=== PATIENT | male | born 1935 | race Caucasian/White ===

== ENCOUNTER 2019-08-23 00:04 | Inpatient (IN) | payer MEDICARE, SELFPAY ==
[2019-08-23] VITALS (22 sets, daily range): BP systolic 134–193; BP diastolic 77–113; PULSE 85–115; RESP 16–22; TEMP 36.2–37.3; O2SAT 94–100; BMI 30.5
--- NOTE | 2019-08-23 | ECHO_ITS ---
Patient Info Name: Tab Hughes Age: 84 years : 1935 Gender: Male Ht: 67 in Wt: 195 lbs BSA: 2.07 m2 HR: 85 bpm BP: 157 / 82 mmHg Heart Rhythm: Sinus Rhythm Technical Quality: Good Exam Date: 08/23/2019 11:42 AM Exam Location: [facility] Card Pulmonary Patient Status: Inpatient Admit Date: 08/23/2019 Staff Ordering Physician: Tru Smith MD Buzzle Buffer: Teodoro Sandra RDCS, RT Attending Provider: Katlyn Rodriguez DO Exam Type: CA echo doppler color flow Study Info Indications R60.0 - Localized edema Complete two-dimensional, color flow and Doppler transthoracic echocardiogram is performed. Summary 1. Left ventricular chamber dimension is normal. 2. Left ventricular systolic function is normal, estimated at 65-70%. 3. There is moderately increased left ventricular wall thickness. 4. The left ventricular diastolic function is grade I diastolic dysfunction. 5. Right ventricular chamber dimension is mildly enlarged. 6. Left atrial chamber dimension is mildly enlarged. 7. There is moderate aortic valve calcification. 8. There is mild mitral valve regurgitation. 9. There is mild pulmonic regurgitation. 10. The aortic root size at the sinus of Valsalva is mildly dilated. Left Ventricle Left ventricular chamber dimension is normal. Left ventricular systolic function is normal, estimated at 65-70%. There is moderately increased left ventricular wall thickness. The left ventricular diastolic function is grade I diastolic dysfunction. Right Ventricle Right ventricular chamber dimension is mildly enlarged. Right ventricular systolic function is normal. Left Atria Left atrial chamber dimension is mildly enlarged. Right Atria Right atrial chamber dimension is normal. Atrial Septum Intact interatrial septum visualized by color flow imaging. Aortic Valve The aortic valve is trileaflet. There is moderate aortic valve sclerosis. There is no aortic valve stenosis. There is trace aortic valve regurgitation. There is moderate aortic valve calcification. Pulmonic Valve The pulmonic valve is normal. There is no pulmonic valve stenosis. There is mild pulmonic regurgitation. Mitral Valve The mitral valve has normal leaflets. There is no mitral valve stenosis. There is mild mitral valve regurgitation. Tricuspid Valve The tricuspid valve leaflets are normal. There is no significant tricuspid valve stenosis. There is trace tricuspid valve regurgitation. Pericardium/Pleural The pericardium appears normal. There is trivial pericardial effusion. Aorta The aortic root size at the sinus of Valsalva is mildly dilated. Left Ventricular Outflow Tract Name Value Normal LVOT 2D LVOT Diameter 2.2 cm LVOT Doppler LVOT Peak Gradient 2 mmHg LVOT Mean Gradient 1 mmHg LVOT VTI 14 cm LVOT VTI/AV VTI Ratio 0.7 LVOT Stroke Volume 50 ml Pulmonic Valve Name
--- NOTE | ~2019-08-23 | XR_ITS ---
EXAMINATION: XR chest 2V DATE: 08/23/2019 01:09 INDICATION: Chest tightness TECHNIQUE: AP and lateral views of the chest are obtained. COMPARISON: 09/05/2017 FINDINGS: There is mild atelectasis of the lung bases. There is no pleural effusion or pneumothorax. The cardiomediastinal silhouette is normal. There is mild thoracic spondylosis. Surgical clips in the right upper quadrant are likely from prior cholecystectomy. IMPRESSION: 1. Mild atelectasis of the lung bases. Reviewed, dictated and finalized at location A. [employer]
--- NOTE | ~2019-08-23 | CT_ITS ---
EXAMINATION: CTA chest abdomen pelvis DATE: 08/23/2019 02:13 INDICATION: Chest and abdominal pain TECHNIQUE: Computed tomographic angiography (CTA) of the chest, abdomen, and pelvis was performed wit hout and with 100 mL Omnipque-350 intravenous contrast. Maximum intensity projection 3D-reconstructio ns of the aorta and other arteries were constructed by the technologist on a separate workstation. Th e dose-length product (DLP) was 1571.47 mGy-cm. Automated exposure control and iterative reconstructi on technique were employed. COMPARISON: 04/02/2015; MRI, 10/21/2018 FINDINGS: CHEST CTA: The thoracic aorta is normal without evidence of aneurysm or dissection. There is dependent atelectas is. No pleural effusion or pneumothorax is identified. No pathologically enlarged thoracic lymph node s are identified. The heart size is normal. There is calcified coronary artery atherosclerosis. ABDOMEN AND PELVIS CTA: There is calcified atherosclerosis of the aorta and many of the other arteries. The abdominal aorta i s otherwise normal without aneurysm or dissection. Cysts of the liver measure up to 10 mm. The gallbl adder is surgically absent. There is mild enlargement of the common bile duct and central intrahepati c ducts which is likely due to post cholecystectomy state. Punctate calcifications in an otherwise no rmal spleen likely represent healed granulomatous disease. The pancreas and adrenal glands are normal . There is a 3.9 cm mass of the right kidney with increase in size. A 1.6 cm mass of the lower pole o f the left kidney slightly increased in size. Soft tissue density adjacent to the left common iliac a rtery is decreased in size, consistent with treated lymphoma. No pathologically enlarged abdominal ly mph nodes are identified. There is no free intraperitoneal gas or evidence of bowel obstruction. Two 4 mm stones are present in the bladder. There is severe lumbar spondylosis. Colonic diverticulosis i s present without evidence of diverticulitis. IMPRESSION: 1. No evidence of aortic aneurysm or dissection. No acute findings. 2. Bilateral kidney masses with slight increase in size, consistent with renal cell carcinoma. 3. Two 4 mm stones in the urinary bladder. Reviewed, dictated and finalized at location A. ET INSPECTOR
--- NOTE | 2019-08-23 00:41 | ECG_ITS ---
Measurements Intervals [place] Rate: 101 P: 22 NV: 152 QRS: 14 QRSD: 93 T: 32 QT: 325 QTc: 422 Interpretive Statements SINUS TACHYCARDIA ATRIAL PREMATURE COMPLEX INFERIOR INFARCT, AGE INDETERMINATE ABNORMAL ECG Electronically Signed On 08-23-2019 8:40:36 HORSE EXERCISER by Oh Chaudhary D.O.
--- NOTE | 2019-08-23 00:45 | ED.CHESTPAIN ---
HPI - Chest Pain General Chief Complaint: Chest Pain Stated Complaint: chest tightness Time Seen by Provider: 08/23/19 00:16 Source: patient Mode of arrival: ambulatory Limitations: no limitations History of Present Illness HPI narrative: The pt is an 84 y/o male who presents to the ED c/o midsternal CP onset two days ago. Pt states that the pain feels like a tightness. Pt notes that he took Nitro x2 one day ago with some relief. He notes that he last took Nitroglycerin one day ago at 1700. Pt reports SOB. 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 MD complaint: chest pain Onset (ago): day(s) (2) Pain location: other (Midsternal) Quality: tightness Relieving factors: nitroglycerin Associated symptoms: dyspnea Related Data Allergies Allergy/AdvReac Type Severity Reaction Status Date / Time No Known Allergies Allergy Unverified 12/08/15 09:55 Review of Systems Review of Systems: All systems reviewed & are unremarkable except as noted in HPI and below Cardiovascular: Cardiovascular: Reports chest pain (Midsternal, tightness) Respiratory: Respiratory: Reports dyspnea [facility] Past Medical History Medical History (Updated 08/23/19 @ 04:18 by Gee Rubio MD) Afib (Acute) Anxiety (Acute) BPH (benign prostatic hyperplasia) (Acute) CAD (coronary artery disease) (Acute) Chronic back pain (Acute) Collar bone fracture (Acute) Depression (Acute) GERD (gastroesophageal reflux disease) (Acute) HLD (hyperlipidemia) (Acute) HTN (hypertension) (Acute) Kidney stones (Acute) Leg fracture, left (Acute) dx3 Non Hodgkin's lymphoma (Acute) Peripheral neuropathy (Acute) Right arm fracture (Acute) Surgical History Surgical History (Updated 08/23/19 @ 00:50 by Teodoro Sheffield) History of cardiac cath (Acute) History of cholecystectomy (Acute) Stented coronary artery (Acute) Social History Social History (Updated 08/23/19 @ 01:04 by Teodoro Sheffield) Smoking status: Never smoker Gender identity (if verbalized by the patient): Male Exam Const: General: alert, diaphoretic and ill appearing Nutritional Appearance: obese Orientation/consciousness: oriented x3 HENMT: Head: normal to inspection Eyes: Conjunctivae: conjunctivae normal Pupils: PERRL Chest: Chest palpation & inspection: normal inspection of the chest and no tenderness Resp: Effort & Inspection: normal respiratory effort Auscultation: clear to auscultation bilaterally Cardio: Rate: regular rate Rhythm: regular rhythm GI: Inspection: distended Palpation (GI): Yes tender in the epigastrum, No guarding and No rebound tenderness Skin: General skin exam: normal color Neuro: General: oriented x3 and moves all extremities Extrem: General: edema (trace) bilateral Course Course Emergency Course: After morphine and nitro paste he reported improvement in chest pain, but began experiencing severe abdominal pain. CTA was ordered, which revealed no cause. Vital Signs Vital signs: Vital Signs Temperature 36.2 C L 08/23/19 00:15 Pulse Rate 102 H 08/23/19 00:15 Respiratory Rate 19 08/23/19 00:15 Blood Pressure 193/106 H 08/23/19 00:15 Pulse Oximetry 100 08/23/19 00:15 Temperature 36.2 C L 08/23/19 01:20 Pulse Rate 102 H 08/23/19 03:32 Respiratory Rate 20 08/23/19 03:32 Blood Pressure 134/81 08/23/19 03:32 Pulse Oximetry 100 08/23/19 03:32 MDM - Chest Pain Lab Data Result diagrams: 08/23/19 00:45 08/23/19 00:45 Labs: Lab Results 08/23/19 08/23/19 08/23/19 Range/Units 00:45 00:45 00:45 WBC 7.1 (4.5-10.0) K/mm3 RBC 5.01 (4.6-6.20) M/mm3 Hgb 14.5 (14.0-18.0) g/dL Hct 45.2 (42.0-52.0) % MCV 90.2 (80-100) fl MCH 28.9 (26-34) pg MCHC 32.1 (32-36) g/dl RDW 13.8 (11.5-14.5) % Plt Count 193 (150-375) k/mm3 MPV 10.2 (7.4-10.4) fl Immature Gran % (Auto) 0.3 (0-0.5) % Ne
[2019-08-23 00:50] LABS: Basophils Absolute Auto 0.1 K/mm3 (0.0-0.1); Basophils Percent Auto 0.7 % (0.2-1.2); Eosinophils Absolute Auto 0.3 K/mm3 (0-0.3); Eosinophils Percent Auto 3.5 % (0-4.4); Hematocrit 45.2 % (42.0-52.0); Hemoglobin 14.5 g/dL (14.0-18.0); Immature Granulocyte Absolute 0.02 K/mm3 (0.00-0.031); Immature Granulocyte Percent A 0.3 % (0-0.5); Lymphocytes Absolute Auto 2.71 K/mm3 (0.9-3.2); Lymphocytes Percent Auto 38.4 % (18.3-44.2); Mean Corpuscular HGB Conc 32.1 g/dl (32-36); Mean Corpuscular Hemoglobin 28.9 pg (26-34); Mean Corpuscular Volume 90.2 fl (80-100); Mean Platelet Volume 10.2 fl (7.4-10.4); Monocytes Absolute Auto 0.8 K/mm3 (0.1-0.6); Monocytes Percent Auto 11.3 % (2.6-8.5); Neutrophils Absolute Auto 3.2 K/mm3 (1.3-6.7); Neutrophils Percent Auto 45.8 % (45.5-73.1); Platelet Count Result 193 k/mm3 (150-375); Red Blood Count 5.01 M/mm3 (4.6-6.20); Red Cell Distribution Width 13.8 % (11.5-14.5); White Blood Count 7.1 K/mm3 (4.5-10.0)
[2019-08-23] MEDS: ASPIRIN 81 MG CHEWABLE TABLET 324 MG PO (00:55)
[2019-08-23] MEDS: NITROGLYCERIN OINTMENT 1 INCH DOSE TRANSDERM ×5 (00:55→23:38)
[2019-08-23] MEDS: MORPHINE SULFATE 4 MG/ML INJ IV PUSH ×2 (00:55→01:48)
[2019-08-23 01:01] LABS: Partial Thromboplastin Time 36.6 SECONDS (22.3-36.8)
[2019-08-23 01:02] LABS: Blood Urea Nitrogen 22 mg/dL (9-20); Calcium 9.2 mg/dL (8.4-10.2); Carbon Dioxide 30 mmol/L (22-30); Chloride 103 mmol/L (98-107); Estimated CRCL calculation 34 ml/min; Estimated Glomerular Filt Rate 52; Glucose 103 mg/dL (75-110); Potassium 3.8 mmol/L (3.4-5.0); Sodium 139 mmol/L (137-145)
[2019-08-23 01:14] LABS: Troponin I < 0.012 ng/mL (0.000-0.034)
[2019-08-23] MEDS: LABETALOL HCL INJ 100 MG/20 ML VIAL 20 MG IV PUSH (02:16)
[2019-08-23 04:17] LABS: Alanine Aminotransferase 19 U/L (4-50); Albumin Level 3.3 g/dL (3.5-5.1); Alkaline Phosphatase 100 U/L (38-126); Aspartate Amino Transferase 27 U/L (17-59); Bilirubin,Total 0.3 mg/dL (0.2-1.3); Lipase 52 U/L (23-300)
[2019-08-23 04:22] LABS: Troponin I 0.027 ng/mL (0.000-0.034)
--- NOTE | 2019-08-23 04:24 | ADMGEN ---
This patient, Tab Hughes, was admitted to IMU Room 204-01. Patient/family oriented to hospital policies and general routines including ID bracelet, bed and alarms, visiting hours, pain management, procedures, bathroom and other care routines, personal items, smoking policy, room service/diet, and visiting hours. Valuables list has been completed. Information on how to activate the Rapid Response Team has been discussed. Patient/Family are encouraged to report perceived risks to care and to ask questions if they do not understand what they are told or what they should do.
[2019-08-23 07:08] LABS: Troponin I 0.077 ng/mL (0.000-0.034)
--- NOTE | 2019-08-23 09:26 | PM.IMHP ---
H&P: HPI History of Present Illness Chief complaint: chest pain Narrative: Tab Hughes is a 84 year old male with history of paroxysmal AFib, coronary disease, hypertension and hyperlipidemia here for chest pain. Patient has a history of coronary disease and has had 5 stents placed in the past. His last heart catheterization was in the . He does not follow with a special agent secret service. Patient states he has been feeling very weak over the past 4 years since being treated with chemo for non-Hodgkin's lymphoma. His around that time as well. He has not been very active recently and does not exercise regularly. He has noted over the past few weeks increasing shortness of breath with exertion or when bending over. No chest pain associated with this. He lives alone. He does have anxiety. A restorationism member was recently found at home alone which is causing more anxiety for him. On the evening of , patient developed chest pressure requiring nitroglycerin. The chest discomfort resolved. Chest pressure returned the following day requiring repeat nitroglycerin. Chest pain continued on and off during the day. He describes it as a 'elephant sitting on my chest'. He also was having left upper extremity 'tingling'. He was not short of breath but did have dyspnea on exertion when walking to the bathroom. He had poor appetite and nausea. He took a total of 4 dose of nitroglycerin at home that improved his pain. He felt poorly overall. He does state the pain was pleuritic but not positional or palpable. He does have chronic leg edema left greater than right for the past 4-5 months. He is on Pradaxa for has paroxysmal atrial fibrillation. Patient was seen by primary care doctor for the edema and treated with diuretics and Skyler hose. No recent stress test or heart catheterization. No recent echo. He sleeps in a chair at home. He has nocturia 1-2 times a night without change. No PND symptoms. Here patient was noted to be hypertensive of 193/106. His 3rd troponin has become positive. He was treated with aspirin, labetalol, nitropaste and morphine with resolution of his pain. His pain has not returned. He feels well today and is hungry. EKG showing no acute changes. Review of Systems Review of Systems: Narrative: Gen - No fever or chills Eye - no double vision or vision changes. Recent left cataract surgery 2 months ago. 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 ENT - no hearing loss. He does have mild tinnitus in the right ear. No odynophagia or dysphagia CV - as above. Pulm - as above. GI - node abdominal pain, diarrhea or constipation. He did have some abdominal cramping after getting medications in the emergency room but that symptom has resolved. - no dysuria or hematuria. Neuro - patient has peripheral neuropathy lower extremities. No history of seizure or stroke. Endo - no weight loss. No diabetes or thyroid disease. Psych - patient has anxiety and has medications that he takes periodically for this. Skin - no rashes, lumps or bumps. [facility] Past Medical History Medical History Afib (Acute) Anxiety (Acute) BPH (benign prostatic hyperplasia) (Acute) CAD (coronary artery disease) (Acute) Chronic back pain (Acute) Collar bone fracture (Acute) Depression (Acute) GERD (gastroesophageal reflux disease) (Acute) HLD (hyperlipidemia) (Acute) HTN (hypertension) (Acute) Kidney stones (Acute) Leg fracture, left (Acute) dx3 Non Hodgkin's lymphoma (Acute) Peripheral neuropathy (Acute) Renal mass (Acute) Bilateral renal masses Right arm fracture (Acute) Stage III chronic kidney disease (Acute) Surgical History Surgical History History of cardiac cath (Acute) History of cholecystectomy (Acute) Stented coronary artery (Acute) Family History Family History (Reviewed 08/23/19 @ 11
--- NOTE | 2019-08-23 11:12 | PM.CNCAR ---
Assessment and Plan Assessment and plan (1) Non-ST elevation myocardial infarction (NSTEMI): Code(s): I21.4 - Non-ST elevation (NSTEMI) myocardial infarction Status: Acute Assessment and Plan: Patient has not ruled in. He has a known history of coronary disease. Continue aspirin, nitroglycerin paste, metoprolol, losartan. Lovenox 1 milligram/kilogram q.12 hours to be initiated. Will start atorvastatin 40 mg p.o. daily. He is stable at this point. Plan will be for coronary angiogram on Sunday. Patient has agreed to temporarily rescinded his DNR status during his procedure. Obviously if he becomes unstable with intractable pain or dynamic EKG changes, will proceed to angiogram urgently/emergently. 2D echocardiogram with Doppler (2) CAD (coronary artery disease): Qualifiers: Coronary Disease-Associated Artery/Lesion type: [place] artery [place] vs. transplanted heart: [place] heart Associated angina: with unstable angina Qualified Code(s): I25.110 - Atherosclerotic heart disease of [place] coronary artery with unstable angina pectoris Code(s): I25.10 - Atherosclerotic heart disease of [place] coronary artery without angina pectoris Status: Acute Assessment and Plan: As above (3) HTN (hypertension): Qualifiers: Hypertension type: essential hypertension Qualified Code(s): I10 - Essential (primary) hypertension Code(s): I10 - Essential (primary) hypertension Status: Acute Assessment and Plan: At goal (4) Afib: Qualifiers: Atrial fibrillation type: paroxysmal Qualified Code(s): I48.0 - Paroxysmal atrial fibrillation Code(s): I48.91 - Unspecified atrial fibrillation Status: Acute Assessment and Plan: Holding Pradaxa for now. (5) HLD (hyperlipidemia): Qualifiers: Hyperlipidemia type: unspecified Qualified Code(s): E78.5 - Hyperlipidemia, unspecified Code(s): E78.5 - Hyperlipidemia, unspecified Status: Acute Assessment and Plan: Starting statin History of Present Illness History of Present Illness Consult date/time: 08/23/19 11:12 Requesting physician: Tru Smith MD Consult reason: chest pain Reason For Visit: chest pain Narrative: Date of service 08/23/2019 History: Patient is an 84-year-old male who does have a known history of coronary artery disease as well as atrial fibrillation. He has not been seen by Cardiology in several years. He is on Pradaxa for atrial fibrillation and has had several stents in the past. He believes the last angiogram he had was in the when the stents were placed. Regardless he had been doing pretty well up until a couple of months ago when restarted to develop shortness of breath. Shortness of breath has progressed to the point that at the top of 1 flight of stairs she has to stop and recover. He has also noticed some worsening swelling over the past couple months. He has been initiated on diuretic therapy by his primary care provider. Three days ago he had an episode of chest pain and took a nitroglycerin which did help his symptoms. He then went to [place] for Thanksgiving and had another episode then. He took a nitroglycerin on Thanksving and then 2 more nitroglycerin yesterday all for chest pain. Chest pain is described as an elephant on his chest radiating to the left shoulder area. Symptoms are improved with nitro. Does have some dizziness and nausea associated with it. His nephew brought him to the hospital after yesterday evening's episode of chest pain. Chest pain is also worsened by food/postprandial. He has subsequently ruled in for myocardial infarction with troponins now at a level of 0.077. He denies any syncope or presyncope. No paroxysmal nocturnal dyspnea orthopnea or palpitations. He currently is pain-free on nitroglycerin, metoprolol, ARB, aspirin. Pradaxa has been on hold and his last dose was at 4:00 p.m. yesterday.
[2019-08-23] MEDS: ASPIRIN 81 MG CHEWABLE TABLET PO (12:49)
[2019-08-23] MEDS: ATORVASTATIN 40 MG TABLET PO (12:49)
[2019-08-23] MEDS: ENOXAPARIN 100 MG/ML SYRINGE 88 MG SUB-Q ×2 (12:49→23:39)
[2019-08-23] MEDS: FLUTICASONE PROPIONATE 0.05% NA SPR 16 GM BTL (*BKC) 2 SPRAY NASAL (12:54)
[2019-08-23 13:51] LABS: Troponin I 0.165 ng/mL (0.000-0.034)
[2019-08-23] MEDS: CARBIDOPA/LEVODOPA 25/100 MG TABLET 1 TABLET PO (17:37)
[2019-08-23 20:01] LABS: Troponin I 0.131 ng/mL (0.000-0.034)
[2019-08-23] MEDS: TAMSULOSIN HCL 0.4 MG CAPSULE PO (21:25)
[2019-08-23] MEDS: ONDANSETRON INJ 4 MG/2 ML VIAL IV PUSH (21:25)
[2019-08-24] VITALS (15 sets, daily range): BP systolic 145–178; BP diastolic 77–89; PULSE 64–110; RESP 12–20; TEMP 36.7–37.1; O2SAT 93–100
[2019-08-24 05:38] LABS: Albumin Level 3.9 g/dL (3.5-5.1); Blood Urea Nitrogen 17 mg/dL (9-20); Calcium 9.1 mg/dL (8.4-10.2); Carbon Dioxide 30 mmol/L (22-30); Chloride 102 mmol/L (98-107); Cholesterol 205 mg/dL (0-200); Estimated CRCL calculation 40 ml/min; Estimated Glomerular Filt Rate 52; Glucose 107 mg/dL (75-110); HDL Direct 39 mg/dL; Phosphorus 3.7 mg/dL (2.5-4.5); Sodium 138 mmol/L (137-145); Triglycerides 154 mg/dL (<150)
[2019-08-24 05:49] LABS: LDL Cholesterol Direct 138 mg/dL
[2019-08-24] MEDS: NITROGLYCERIN OINTMENT 1 INCH DOSE TRANSDERM ×4 (05:58→23:03)
[2019-08-24] MEDS: ASPIRIN 81 MG CHEWABLE TABLET PO (09:34)
[2019-08-24] MEDS: PANTOPRAZOLE 40 MG TABLET PO (09:34)
[2019-08-24] MEDS: ENOXAPARIN 100 MG/ML SYRINGE 88 MG SUB-Q ×2 (09:35→23:02)
[2019-08-24] MEDS: LOSARTAN POTASSIUM 100 MG TABLET PO (09:36)
[2019-08-24] MEDS: ATORVASTATIN 40 MG TABLET PO (09:36)
[2019-08-24] MEDS: CARBIDOPA/LEVODOPA 25/100 MG TABLET 1 TABLET PO ×2 (09:36→16:54)
[2019-08-24] MEDS: METOPROLOL SUCCINATE EXT REL 100 MG TABCR PO (09:36)
[2019-08-24] MEDS: AMLODIPINE BESYLATE 5 MG TABLET BY MOUTH (09:36)
[2019-08-24] MEDS: ACETAMINOPHEN 325 MG TABLET 650 MG PO (09:37)
[2019-08-24] MEDS: FINASTERIDE 5 MG TABLET PO (09:43)
--- NOTE | 2019-08-24 09:58 | PM.PNCARD ---
Progress Note: A&P Assessment and Plan (1) Non-ST elevation myocardial infarction (NSTEMI): Code(s): I21.4 - Non-ST elevation (NSTEMI) myocardial infarction Status: Acute Assessment and Plan: Patient has ruled in. He has a known history of coronary disease. Continue aspirin, nitroglycerin paste, metoprolol, losartan. Patient has agreed to temporarily rescinded his DNR status during his procedure. Obviously if he becomes unstable with intractable pain or dynamic EKG changes, will proceed to angiogram urgently/emergently. Continue Lovenox until this evening's dose is given then discontinue. NPO after midnight for cardiac catheterization tomorrow. (2) CAD (coronary artery disease): Qualifiers: Coronary Disease-Associated Artery/Lesion type: [place] artery [place] vs. transplanted heart: [place] heart Associated angina: with unstable angina Qualified Code(s): I25.110 - Atherosclerotic heart disease of [place] coronary artery with unstable angina pectoris Code(s): I25.10 - Atherosclerotic heart disease of [place] coronary artery without angina pectoris Status: Acute Assessment and Plan: As above (3) HTN (hypertension): Qualifiers: Hypertension type: essential hypertension Qualified Code(s): I10 - Essential (primary) hypertension Code(s): I10 - Essential (primary) hypertension Status: Acute Assessment and Plan: Increase amlodipine to 10 mg daily (4) Afib: Qualifiers: Atrial fibrillation type: paroxysmal Qualified Code(s): I48.0 - Paroxysmal atrial fibrillation Code(s): I48.91 - Unspecified atrial fibrillation Status: Acute Assessment and Plan: Holding Pradaxa for now. (5) HLD (hyperlipidemia): Qualifiers: Hyperlipidemia type: unspecified Qualified Code(s): E78.5 - Hyperlipidemia, unspecified Code(s): E78.5 - Hyperlipidemia, unspecified Status: Acute Assessment and Plan: Starting statin Subjective Interval history: Chief complaint: Chest pain, non-STEMI Date of service 08/24/2019: He feels well today. No chest pain or shortness of breath Review of Systems Review of Systems: All systems reviewed & are unremarkable except as noted in HPI and below Constitutional: Constitutional: Denies excessive sweating, Denies fatigue and Denies headache(s) Eyes: Eyes: Denies blurry vision ENT: Denies headache(s), Denies lip swelling, Denies epistaxis and Denies neck pain Cardiovascular: Cardiovascular: Reports chest pain, Reports pedal edema and Reports dyspnea Respiratory: Respiratory: Reports dyspnea Gastrointestinal: Gastrointestinal: Denies abdominal pain Genitourinary: Genitourinary: Denies dysuria Musculoskeletal: Musculoskeletal: Denies neck pain Integumentary/Breasts: Skin/Breast: Denies breast pain and Denies dry skin Neurologic: Denies headache(s) Psychiatric: Psychiatric: Denies anxiety Endocrine: Endocrine: Denies excessive sweating and Denies fatigue Hematologic/Lymphatic: Hematologic/Lymphatic: Denies easy bleeding Allergic/Immunologic: Allergic/Immunologic: Denies GI upset with certain foods and Denies lip swelling Exam Const: General: comfortable HENMT: General nose exam: nares normal Eyes: Pupils: PERRL Neck: Neck: supple and no JVD Carotids: no bruits Chest: Other: No chest wall pain to palpation Resp: Auscultation: clear to auscultation bilaterally and no rales Cardio: Rate: regular rate Heart sounds: murmur GI: Palpation (GI): Yes soft and Yes tender Skin: General skin exam: normal color and no erythema Neuro: Cranial nerves: Yes PERRL Cognition (Neuro): normal cognition Speech: normal speech Extrem: General: edema (Mild) bilateral Right upper extremity: normal to inspection Left upper extremity: normal to inspection Right lower extremity: normal to inspection Left lower extremity: normal to inspection Psych: Mental St
--- NOTE | 2019-08-24 15:05 | PM.IMPN ---
Progress Note: A&P Assessment and Plan (1) Non-ST elevation myocardial infarction (NSTEMI): Code(s): I21.4 - Non-ST elevation (NSTEMI) myocardial infarction Status: Acute Assessment and Plan: Patient with stuttering chest pain relieved with nitroglycerin. No significant EKG changes. Troponin has become elevated to 0.165. Patient does have risk factors with sedentary lifestyle, hypertension, hyperlipidemia and known coronary disease without recent evaluation. His symptoms could be related to uncontrolled hypertension as well but he does not give a clear history that his blood pressures has been poorly controlled at the doctor's office. Consider also anxiety and/or acid reflux although these seem less likely. Echo showing EF 65-70% with Grade I DD. Continue nitropaste, beta-ag, statin and ASA. Plan for heart catheterization tomorrow. (2) HTN (hypertension): Qualifiers: Hypertension type: essential hypertension Qualified Code(s): I10 - Essential (primary) hypertension Code(s): I10 - Essential (primary) hypertension Status: Acute Assessment and Plan: Blood pressure 193/106 on admission. Blood pressure was treated in the emergency room. Some of his chest pain symptoms may be related to uncontrolled hypertension. Blood pressure reviewed on 08/24/19. BP still elevated despite resuming home medications (imdur on hold but on NTP). Unclear how well controlled blood pressures has been in the outpatient setting. Norvasc has been advanced. To monitor blood pressure adjust medications as needed. (3) Afib: Qualifiers: Atrial fibrillation type: paroxysmal Qualified Code(s): I48.0 - Paroxysmal atrial fibrillation Code(s): I48.91 - Unspecified atrial fibrillation Status: Acute Assessment and Plan: [id number] - 4. Patient with paroxysmal AFib. Patient on Pradaxa for stroke prophylaxis and metoprolol for rate maintenance. We have continued his metoprolol. Hold Pradaxa for now. Currently on Lovenox which will be stopped tonight for planned left heart catheterization in morning. (4) BPH (benign prostatic hyperplasia): Qualifiers: Lower urinary tract symptom presence: symptoms absent Qualified Code(s): N40.0 - Benign prostatic hyperplasia without lower urinary tract symptoms Code(s): N40.0 - Benign prostatic hyperplasia without lower urinary tract symptoms Status: Acute Assessment and Plan: No evidence of urine retention. Continue finasteride and Flomax. (5) Anxiety: Code(s): F41.9 - Anxiety disorder, unspecified Status: Acute Assessment and Plan: Mood stable. Not on long-term medications anxiety. (6) Non Hodgkin's lymphoma: Qualifiers: B-cell lymphoma type: unspecified B-cell Lymphoma site: intra-abdominal nodes Non-Hodgkin lymphoma type: B-cell Qualified Code(s): C85.13 - Unspecified B-cell lymphoma, intra-abdominal lymph nodes Code(s): C85.90 - Non-Hodgkin lymphoma, unspecified, unspecified site Status: Acute Assessment and Plan: Patient is status post chemotherapy treatment. Recent abdominal MRI in September 2018 showing no recurrence. No pathologically enlarged abdominal lymph nodes are identified by CT. Continue to monitor. (7) HLD (hyperlipidemia): Qualifiers: Hyperlipidemia type: unspecified Qualified Code(s): E78.5 - Hyperlipidemia, unspecified Code(s): E78.5 - Hyperlipidemia, unspecified Status: Acute Assessment and Plan: Patient has hyperlipidemia listed on his past medical history but not on cholesterol medications. Cholesterol 205 with LDL 138 and HDL 39. Triglyceride 154. LFTs normal. Lipitor started. (8) CAD (coronary artery disease): Qualifiers: Associated angina: with unstable angina Coronary Disease-Associated Artery/Lesion type: [place] artery [place] vs. tra
[2019-08-24] MEDS: POLYETHYLENE GLYCOL 3350 17 GM POWD.PACK PO (16:54)
[2019-08-24] MEDS: TAMSULOSIN HCL 0.4 MG CAPSULE PO (21:13)
[2019-08-25] VITALS (32 sets, daily range): BP systolic 138–176; BP diastolic 73–118; PULSE 72–97; RESP 14–25; TEMP 36.6–37.5; O2SAT 92–97
[2019-08-25] MEDS: NITROGLYCERIN OINTMENT 1 INCH DOSE TRANSDERM (06:05)
[2019-08-25] MEDS: ATORVASTATIN 40 MG TABLET PO (07:51)
[2019-08-25] MEDS: LOSARTAN POTASSIUM 100 MG TABLET PO (07:51)
[2019-08-25] MEDS: CARBIDOPA/LEVODOPA 25/100 MG TABLET 1 TABLET PO ×2 (07:51→16:15)
[2019-08-25] MEDS: FINASTERIDE 5 MG TABLET PO (07:51)
[2019-08-25] MEDS: AMLODIPINE BESYLATE 5 MG TABLET 10 MG BY MOUTH (07:51)
[2019-08-25] MEDS: PANTOPRAZOLE 40 MG TABLET PO (07:52)
[2019-08-25] MEDS: FLUTICASONE PROPIONATE 0.05% NA SPR 16 GM BTL (*BKC) 2 SPRAY NASAL (07:52)
[2019-08-25] MEDS: METOPROLOL SUCCINATE EXT REL 100 MG TABCR PO (07:52)
[2019-08-25] MEDS: ASPIRIN 81 MG CHEWABLE TABLET PO (07:56)
--- NOTE | 2019-08-25 12:10 | WPDCARDPROC ---
Cardiac Cath Procedure Note Date of procedure:: 08/25/19 Performing physician:: Stephan Zaldivar MD Indication:: Coronary artery disease with right remote history of PCI intermittent ischemic chest pain Brief clinical history:: 84-year-old patient with history of coronary artery disease undergoing stenting in the . Records of that are not available. Patient was doing well until the last couple of days when he had several episodes of ischemic type chest pain radiating into the left arm in a very modest rise in his troponin level. Procedure Procedure performed:: Left heart catheterization with left and right coronary angiography Sedation/Medication given:: fentanyl 50 mg Versed 2 mg case start time 11:44 a.m. case end time 12:03 p.m. sedation provided by Micki Newman RN trained observer Access site:: right femoral artery Estimated blood loss:: 10-15 cc Procedure note:: patient was brought to the cardiac catheterization lab in the postabsorptive state where the right femoral triangle was prepared and draped in the usual fashion. Anesthesia was provided with 1% lidocaine infiltrated locally. Using the modified Seldinger technique a 5 [place] sheath was placed into the right femoral artery. Left heart catheterization was then carried out. A high quality echocardiogram was done this morning demonstrating normal looking left ventricular function so I elected not to perform a left ventriculogram standard 5 [place] FL4 catheter was used to engage inject the left coronary artery. Standard 5 [place] JR4 catheter was used to engage inject the right coronary artery. The cineangiograms were reviewed in detail and then the case was terminated. The patient was taken to the holding area for manual sheath removal. Findings:: Central aortic pressure was 166/72. The left ventricle was not entered left main coronary artery is moderate to large in caliber and appears to be calcified but widely patent left anterior descending is a medium caliber artery extending down to the apex. There is diffuse disease of the proximal 3rd of the LAD. This is somewhat eccentric but appears to be in the vicinity of at least 80 and possibly 90% stenosis in a couple of views. This segment of the LAD is extensively calcified. A large septal perforating complex has a proximal stenosis of 90%. The 2nd diagonal branch also has a proximal 80-90% stenosis the circumflex is a moderate caliber artery which proximally is patent the 1st problem very poor high OM branch has a 90-95% stenosis. Distally it is of fairly long good caliber vessel. after this there is an extremely small 2nd marginal branch. The distal circumflex is giving rise to a posterior breast there is visible stent material in this vessel with minimal loss of lumen but with fairly good lumen and VALDO 3 flow. There is no more than 20-30% InStent luminal stenosis. The right coronary artery is very large caliber is mildly disease throughout with plaques that represent 20-30% stenosis. The RPDA is extremely small with 99% ostial stenosis and 99% stenosis in the midportion. The RPL branches are large in caliber and have mild luminal plaquing but no significantly luminal stenosis is seen Conclusion:: three-vessel coronary artery disease with heavily calcified left coronary artery significant proximal stenosis in the LAD is noted in the segment that is heavily calcified. Ostium of 2nd diagonal and septal perforating complex are also involved as detailed above. High-grade stenosis in the 1st OM branch of the circumflex visible stent material seen in the distal circumflex posterior branch that does not appear to have any flow-limiting lesions at this time large caliber dominant right coronary artery without significant stenosis in the trunk of the vessel. The are PDA is highly stenosed both at the ostium and in the midportion but appears in my opinion to be too small to be suitable for PCI large RPL branches
--- NOTE | 2019-08-25 12:32 | SUR.PHASEI ---
1230 PT STATES HE HAS CHRONIC LOWER BACK PAIN AND HE IS RATING PAIN 7-8 ON A SCALE OF 1-10. DR BENNETT AT BEDSIDE. ORDERS RECEIVED FOR FENTANYL 50 MCG IVP, GIVEN. WILL CONT TO MONITOR STEPH. AND DAUGHTER AT BEDSIDE.
[2019-08-25] MEDS: hydrALAZINE HCL 20 MG/ML VIAL 10 MG IV PUSH (13:13)
--- NOTE | 2019-08-25 13:42 | SUR.PHASEII ---
1343 5 FR SHEATH PULLED BY SHARON TRONCOSO PER PROTOCOL. FIRM MANUAL PRESSURE APPLIED WILL CONTINUE TO MONITOR.
--- NOTE | 2019-08-25 14:59 | SUR.PHASEII ---
REPORT CALLED TO HANNAH RN IN IMU, ALL QUESTIONS ANSWERED, PATIENT RETURNED TO FLOOR VIA STRETCHER.
--- NOTE | 2019-08-25 15:58 | PM.IMPN ---
Progress Note: A&P Assessment and Plan (1) Non-ST elevation myocardial infarction (NSTEMI): Code(s): I21.4 - Non-ST elevation (NSTEMI) myocardial infarction Status: Acute Assessment and Plan: Patient with stuttering chest pain relieved with nitroglycerin. No significant EKG changes. Troponin has become elevated to 0.165. Patient does have risk factors with sedentary lifestyle, hypertension, hyperlipidemia and known coronary disease without recent evaluation. Echo showing EF 65-70% with Grade I DD. LHC showing: LAD 8090% stenosis, large septal perforating complex with a 90% stenosis, a 2nd diagonal with a proximal 80-90% stenosis and a 90-95% stenosis of 1st OM branch of the LCx. Medical mngmt recommended. Continue Lipitor, metoprolol, Imdur, ASA, Losartan. Plavix added but patient will need Pradaxa to be resumed. Home when okay with cardiology. (2) HTN (hypertension): Qualifiers: Hypertension type: essential hypertension Qualified Code(s): I10 - Essential (primary) hypertension Code(s): I10 - Essential (primary) hypertension Status: Acute Assessment and Plan: Blood pressure 193/106 on admission. Blood pressure was treated in the emergency room. Some of his chest pain symptoms may be related to uncontrolled hypertension. Blood pressure reviewed on 08/25/19. BP still elevated despite being on Imdur, Norvasc, Metoprolol, Losartan although Imdur has not been given yet. Unclear how well controlled blood pressures has been in the outpatient setting. Continue to monitor with the addition of the Imdur. (3) Afib: Qualifiers: Atrial fibrillation type: paroxysmal Qualified Code(s): I48.0 - Paroxysmal atrial fibrillation Code(s): I48.91 - Unspecified atrial fibrillation Status: Acute Assessment and Plan: [id number] - 4. Patient with paroxysmal AFib. Patient on Pradaxa for stroke prophylaxis and metoprolol for rate maintenance. We have continued his metoprolol. Pradaxa currently on hold. Resume Pradaxa per Cardiology. (4) Non Hodgkin's lymphoma: Qualifiers: B-cell lymphoma type: unspecified B-cell Lymphoma site: intra-abdominal nodes Non-Hodgkin lymphoma type: B-cell Qualified Code(s): C85.13 - Unspecified B-cell lymphoma, intra-abdominal lymph nodes Code(s): C85.90 - Non-Hodgkin lymphoma, unspecified, unspecified site Status: Acute Assessment and Plan: Patient is status post chemotherapy treatment. Recent abdominal MRI in September 2018 showing no recurrence. No pathologically enlarged abdominal lymph nodes are identified by CT here. Continue to monitor. (5) HLD (hyperlipidemia): Qualifiers: Hyperlipidemia type: unspecified Qualified Code(s): E78.5 - Hyperlipidemia, unspecified Code(s): E78.5 - Hyperlipidemia, unspecified Status: Acute Assessment and Plan: Patient has hyperlipidemia listed on his past medical history but not on cholesterol medications. Cholesterol 205 with LDL 138 and HDL 39. Triglyceride 154. LFTs normal. Lipitor started. (6) CAD (coronary artery disease): Qualifiers: Associated angina: with unstable angina Coronary Disease-Associated Artery/Lesion type: [place] artery [place] vs. transplanted heart: [place] heart Qualified Code(s): I25.110 - Atherosclerotic heart disease of [place] coronary artery with unstable angina pectoris Code(s): I25.10 - Atherosclerotic heart disease of [place] coronary artery without angina pectoris Status: Acute Assessment and Plan: Patient with known coronary disease. He has had 5 stents placed in the past but nothing recent. Continue medical management for now. As above. (7) Stage III chronic kidney disease: Code(s): N18.3 - Chronic kidney disease, stage 3 (moderate) Status: Acute Assessment and Plan: Patient with estimated GFR 53 earlier this year.
[2019-08-25] MEDS: SODIUM CHLORIDE 0.9% IV 500 ML 125 ML (16:15)
[2019-08-25] MEDS: ACETAMINOPHEN 325 MG TABLET 650 MG PO (18:00)
[2019-08-25] MEDS: TAMSULOSIN HCL 0.4 MG CAPSULE PO (21:49)
[2019-08-26] VITALS (13 sets, daily range): BP systolic 131–154; BP diastolic 69–86; PULSE 71–84; RESP 15–22; TEMP 36.6–37.2; O2SAT 93–99
--- NOTE | 2019-08-26 10:26 | PM.PNCARD ---
Progress Note: A&P Assessment and Plan (1) Non-ST elevation myocardial infarction (NSTEMI): Code(s): I21.4 - Non-ST elevation (NSTEMI) myocardial infarction Status: Acute Assessment and Plan: patient with known CAD, found to have multivessel CAD yesterday with calcific stenosis in the LAD. His LVEF is normal on surface echocardiogram. He was deemed to be appropriate for medical treatment for ACS by Dr. Zaldivar. patient is clinically stable at present without any recurrent chest discomfort or shortness of breath. He has been managed with optimal medical treatment including dual antiplatelet therapy, beta-ag, ARB, statin. I reviewed patient's coronary angiographic images. The plan is to continue patient on optimal medical treatment for ACS. If he has recurrent chest discomfort, then he will be brought to [facility] for high risk PCI with adjunct atherectomy for calcific stenoses. Management plan was discussed with the patient and he is in agreement. Subjective Interval history: patient denies any recurrent chest pain or shortness of breath since yesterday. He had coronary angiogram yesterday which showed multivessel coronary disease including calcific stenosis in the proximal LAD. Review of Systems Cardiovascular: Comments: Denies chest pain or shortness of breath at present Exam Const: General: no acute distress, alert and awake HENMT: Head: normocephalic and atraumatic Ears: hearing grossly normal bilaterally and external ears normal General nose exam: external nose normal and no epistaxis Face and sinus: normal facial exam and no ecchymosis Mouth: Yes tongue normal and Yes moist mucous membranes Teeth and gingiva: dentition normal Eyes: Conjunctivae: conjunctivae normal Sclera: sclerae normal Pupils: PERRL EOM: EOM intact bilaterally Neck: Neck: normal visual inspection, supple and no JVD Thyroid: thyroid normal Carotids: normal carotid upstroke Resp: Effort & Inspection: normal respiratory effort and able to speak in complete sentences Auscultation: clear to auscultation bilaterally Cardio: Jugular venous distension: no JVD Rate: regular rate Rhythm: regular rhythm Heart sounds: S1 normal, S2 normal and no murmurs GI: Inspection: normal to inspection Palpation (GI): No abdominal tenderness Auscultation: normal bowel sounds Skin: Other: no rash on exposed areas, no cyanosis Neuro: Cranial nerves: Yes PERRL and Yes hearing normal Other: alert, oriented, no major focal deficits on gross neurological examination Extrem: Other: no edema, no cyanosis, no major deformities Psych: Appearance: grossly normal Mental Status: mental status grossly normal Objective Data Vital Signs Vital Signs: Vital Signs - 24 hr 08/25/19 12:15 08/25/19 12:30 08/25/19 12:45 Temperature Pulse Rate 95 97 Respiratory Rate 14 16 16 Blood Pressure 171/96 H 174/103 H 176/94 H Pulse Oximetry 94 L 92 L 93 L 08/25/19 13:00 08/25/19 13:15 08/25/19 13:45 Temperature Pulse Rate 92 Respiratory Rate 22 H 19 23 H Blood Pressure 168/94 H 172/84 H 160/88 H Pulse Oximetry 93 L 94 L 96 08/25/19 14:00 08/25/19 14:10 08/25/19 14:25 Temperature Pulse Rate 88 95 Respiratory Rate 25 H 17 20 Blood Pressure 167/92 H 167/83 H 174/118 H Pulse Oximetry 94 L 94 L 95 08/25/19 14:40 08/25/19 14:50 08/25/19 14:55 Temperature 37.1 C Pulse Rate 96 93 Respiratory Rate 16 18 Blood Pressure 160/92 H 160/92 H Pulse Oximetry 96 96 08/25/19 15:10 08/25/19 16:00 08/25/19 16:10 Temperature 37.3 C Pulse Rate 91 74 90 Respiratory Rate 15 20 Blood Pressure 172/92 H 141/82 H Pulse Oximetry 97 08/25/19 16:24 08/25/19 17:34 08/25/19 18:00 Temperature 37.3 C 37.4 C Pulse Rate 86 93 86 Respiratory Rate 22 H 22 H Blood Pressure 167/82 H 157/73 H Pulse Oximetry 97 92 L 08/25/19 18:58 08/25/19 19:58 08/25/19 20:00 Temperature 37.4 C 37.5 C Pulse Rate 93 92
[2019-08-26] MEDS: METOPROLOL SUCCINATE EXT REL 100 MG TABCR PO (10:44)
[2019-08-26] MEDS: ISOSORBIDE MONONITRATE 60 MG TAB.ER.24H PO (10:45)
[2019-08-26] MEDS: CLOPIDOGREL BISULFATE 75 MG TABLET PO (10:45)
[2019-08-26] MEDS: ASPIRIN 81 MG CHEWABLE TABLET PO (10:45)
[2019-08-26] MEDS: LOSARTAN POTASSIUM 100 MG TABLET PO (10:45)
[2019-08-26] MEDS: ATORVASTATIN 40 MG TABLET PO (10:45)
[2019-08-26] MEDS: CARBIDOPA/LEVODOPA 25/100 MG TABLET 1 TABLET PO (10:45)
[2019-08-26] MEDS: AMLODIPINE BESYLATE 5 MG TABLET 10 MG BY MOUTH (10:45)
[2019-08-26] MEDS: FINASTERIDE 5 MG TABLET PO (10:45)
[2019-08-26] MEDS: FLUTICASONE PROPIONATE 0.05% NA SPR 16 GM BTL (*BKC) 2 SPRAY NASAL (10:46)
[2019-08-26] MEDS: PANTOPRAZOLE 40 MG TABLET PO (10:46)
--- NOTE | 2019-08-26 11:25 | PM.IMPN ---
Progress Note: A&P Assessment and Plan (1) Non-ST elevation myocardial infarction (NSTEMI): Code(s): I21.4 - Non-ST elevation (NSTEMI) myocardial infarction Status: Acute Assessment and Plan: Patient with chest pain relief from nitroglycerin. No significant EKG changes but troponin level did increase with maximum of 0.165. Cardiology consulted and appreciate input. NSTEMI confirmed. Cardiac catheterization done on 08/25/2019 with 3 vessel disease coronary artery. Plan for medical management at this time. Possible referral for higher risk PCI if becomes necessary. Telemetry reviewed on 08/26/2019 with sinus rhythm. EF 65-70%, diastolic dysfunction grade 1. Continue ASA, Plavix, atorvastatin, adjusted Imdur and metoprolol. Pradaxa stopped. Will discharge today. (2) CAD (coronary artery disease): Qualifiers: Associated angina: with unstable angina Coronary Disease-Associated Artery/Lesion type: [place] artery [place] vs. transplanted heart: [place] heart Qualified Code(s): I25.110 - Atherosclerotic heart disease of [place] coronary artery with unstable angina pectoris Code(s): I25.10 - Atherosclerotic heart disease of [place] coronary artery without angina pectoris Status: Acute Assessment and Plan: New cardiac catheterization as noted. Will continue cardiac medications as noted above. (3) HTN (hypertension): Qualifiers: Hypertension type: essential hypertension Qualified Code(s): I10 - Essential (primary) hypertension Code(s): I10 - Essential (primary) hypertension Status: Acute Assessment and Plan: Blood pressure noted to be elevated on admission. Blood pressure reviewed on 08/26/2019 and stable. On amlodipine, hydrochlorothiazide, losartan and metoprolol. Will need to follow as outpatient. (4) Afib: Qualifiers: Atrial fibrillation type: paroxysmal Qualified Code(s): I48.0 - Paroxysmal atrial fibrillation Code(s): I48.91 - Unspecified atrial fibrillation Status: Acute Assessment and Plan: Patient with paroxysmal AFib. Telemetry reviewed on 08/26/19 with sinus rhythm. Pradaxa to be still stopped. Will continue metoprolol. (5) HLD (hyperlipidemia): Qualifiers: Hyperlipidemia type: unspecified Qualified Code(s): E78.5 - Hyperlipidemia, unspecified Code(s): E78.5 - Hyperlipidemia, unspecified Status: Acute Assessment and Plan: Now on atorvastatin and will continue. (6) Stage III chronic kidney disease: Code(s): N18.3 - Chronic kidney disease, stage 3 (moderate) Status: Acute Assessment and Plan: Creatinine stable at 1.[address] abdomen and pelvis as noted above. (7) BPH (benign prostatic hyperplasia): Qualifiers: Lower urinary tract symptom presence: symptoms absent Qualified Code(s): N40.0 - Benign prostatic hyperplasia without lower urinary tract symptoms Code(s): N40.0 - Benign prostatic hyperplasia without lower urinary tract symptoms Status: Acute Assessment and Plan: No evidence of urine retention. Continue finasteride and Flomax. (8) Anxiety: Code(s): F41.9 - Anxiety disorder, unspecified Status: Acute Assessment and Plan: Mood remains stable. Not on long-term medications anxiety. Not receiving any medication currently. (9) Non Hodgkin's lymphoma: Qualifiers: B-cell lymphoma type: unspecified B-cell Lymphoma site: intra-abdominal nodes Non-Hodgkin lymphoma type: B-cell Qualified Code(s): C85.13 - Unspecified B-cell lymphoma, intra-abdominal lymph nodes Code(s): C85.90 - Non-Hodgkin lymphoma, unspecified, unspecified site Status: Acute Assessment and Plan: Patient is status post chemotherapy treatment. Recent abdominal MRI in September 2018 showing no recurrence. No obvious findings by CT scan here with official report showing no acute f
--- NOTE | 2019-08-26 14:03 | PCDIET ---
MD consult received. Information provided to patient. Patient not ready for lifestyle change at this time.
--- NOTE | 2019-08-26 19:16 | PM.DS ---
DS: Diagnosis Admitting Diagnosis Admitting Diagnosis: Non-ST elevation (NSTEMI) myocardial infarction Discharge Diagnosis (1) Non-ST elevation myocardial infarction (NSTEMI): Code(s): I21.4 - Non-ST elevation (NSTEMI) myocardial infarction Status: Acute (2) CAD (coronary artery disease): Qualifiers: Associated angina: with unstable angina Coronary Disease-Associated Artery/Lesion type: [place] artery [place] vs. transplanted heart: [place] heart Qualified Code(s): I25.110 - Atherosclerotic heart disease of [place] coronary artery with unstable angina pectoris Code(s): I25.10 - Atherosclerotic heart disease of [place] coronary artery without angina pectoris Status: Acute (3) HTN (hypertension): Qualifiers: Hypertension type: essential hypertension Qualified Code(s): I10 - Essential (primary) hypertension Code(s): I10 - Essential (primary) hypertension Status: Acute (4) Afib: Qualifiers: Atrial fibrillation type: paroxysmal Qualified Code(s): I48.0 - Paroxysmal atrial fibrillation Code(s): I48.91 - Unspecified atrial fibrillation Status: Acute (5) HLD (hyperlipidemia): Qualifiers: Hyperlipidemia type: unspecified Qualified Code(s): E78.5 - Hyperlipidemia, unspecified Code(s): E78.5 - Hyperlipidemia, unspecified Status: Acute (6) Stage III chronic kidney disease: Code(s): N18.3 - Chronic kidney disease, stage 3 (moderate) Status: Acute (7) BPH (benign prostatic hyperplasia): Qualifiers: Lower urinary tract symptom presence: symptoms absent Qualified Code(s): N40.0 - Benign prostatic hyperplasia without lower urinary tract symptoms Code(s): N40.0 - Benign prostatic hyperplasia without lower urinary tract symptoms Status: Acute (8) Anxiety: Code(s): F41.9 - Anxiety disorder, unspecified Status: Acute (9) Non Hodgkin's lymphoma: Qualifiers: B-cell lymphoma type: unspecified B-cell Lymphoma site: intra-abdominal nodes Non-Hodgkin lymphoma type: B-cell Qualified Code(s): C85.13 - Unspecified B-cell lymphoma, intra-abdominal lymph nodes Code(s): C85.90 - Non-Hodgkin lymphoma, unspecified, unspecified site Status: Acute DS: Summary Hospital Course Reason for hospitalization: Chest pain. Hospital Course: Date of Service of Discharge: August 26, 2019. History of Present Illness: Patient is an 84-year-old gentleman with known history of paroxysmal atrial fibrillation, coronary artery disease, hypertension hyperlipidemia presented to the emergency room with complaint of chest pain. He has had 5 stents placed previously with last cardiac catheterization in the . He reports feeling very weak over the past 4 years since being treated for non-Hodgkin's lymphoma. With his current symptoms, patient has noticed increasing shortness of breath with exertion or when bending over in the past few weeks. He reports on the evening of he developed chest pressure require nitroglycerin with chest discomfort resolved. Chest pain continued on and off during the day. He also reported left upper extremity tingling. He reports shortness of breath when walking to the bathroom as well as poor appetite and nausea. Patient did take a total of 4 doses of nitroglycerin at home. In the emergency room, he was noted to have elevated blood pressure as well as elevation of troponin level. No EKG changes. As a result, he was admitted for further evaluation and treatment. Course in Hospital: On admission, patient was placed in intermediate care unit where he remained for the duration of his stay. Serial troponin levels did reveal elevation. As noted, EKG with no acute changes. Telemetry was monitored also with no acute changes. He had been given aspirin as well as nitroglycerin paste and labetalol in the emergency room. Cardiology was consulted and did fol
== END 2019-08-26 17:01 | disposition home or self-care (01) | DRG 282 ==
LOC: ANHED 00:42 → ANHIMU 04:04
PROVIDERS: Internal Medicine; Specialist; Admitting Provider Internal Medicine; Emergency Provider Emergency Medicine; PCP Emergency Medicine; Visit Provider Hospitalist
PROC: 4A023N7 Measurement of Cardiac Sampling and Pressure, Left Heart, Percutaneous Approach (ICD-10-PCS; CPT 93454; principal; 2019-08-25 11:30)
DX: I21.4 Non-ST elevation (NSTEMI) myocardial infarction (principal); I25.110 Atherosclerotic heart disease of native coronary artery with unstable angina pectoris; E78.5 Hyperlipidemia, unspecified; I12.9 Hypertensive chronic kidney disease with stage 1 through stage 4 chronic kidney disease, or unspecified chronic kidney disease; N18.3 Chronic kidney disease, stage 3 (moderate); I48.0 Paroxysmal atrial fibrillation; N40.0 Benign prostatic hyperplasia without lower urinary tract symptoms; G62.9 Polyneuropathy, unspecified; F32.9 Major depressive disorder, single episode, unspecified; F41.9 Anxiety disorder, unspecified; Z95.5 Presence of coronary angioplasty implant and graft; Z85.72 Personal history of non-Hodgkin lymphomas
CPT/HCPCS: 36415; 71046; 71275; 74174; 80048; 80061; 80069; 80076; 83690; 84443; 84484; 85025; 85610; 85730; 93005; 93306; 93454; 93458; 96372; 96374; 96375; 96376; 99285; A9270; C1887; C1894; G0378; J0360; J1644; J1650; J2250; J2270; J2405; J3010; J7040; Q9967

== ENCOUNTER 2019-11-12 14:45 | Outpatient (CLI) | payer MEDICARE, SELFPAY ==
--- NOTE | ~2019-11-12 | CT_ITS ---
EXAMINATION: CT abdomen wo/w con DATE: 11/12/2019 15:39 INDICATION: Right kidney mass. TECHNIQUE: Computed tomography (CT) of the abdomen was performed without and with 100 mL Omnipaque 35 0 intravenous contrast. Automated exposure control and iterative reconstruction technique were employ ed. The dose-length product was 1393.03 mGy-cm. COMPARISON: CT abdomen and pelvis 09/01/2019, 04/02/15 FINDINGS: The visualized portions of the lung bases demonstrate mild atelectasis. No pleural effusion . The heart size is normal. There are coronary artery calcifications. No pericardial effusion. Calcif ied left hilar lymph nodes are consistent with old granulomatous disease. There are cysts in the live r measuring up to 13 mm. There are changes of cholecystectomy. Calcifications in the spleen are consi stent with old granulomatous disease. The pancreas and adrenal glands are normal. There is a 4.1 cm e nhancing mass in right kidney, increased from 3.5 cm on 04/02/15. There is a 4 mm stone in right kidne y. There is mild atrophy of left kidney. There is a 1.7 cm hemorrhagic cyst in left kidney. There is a 1.5 cm enhancing mass of left kidney inferior pole, stable from 04/02/15. There are cysts in left ki dney measuring up to 10 mm. There are no dilated loops of bowel. There is diverticulosis of the colon without evidence of diverticulitis. There are no pathologically enlarged lymph nodes. Again seen is lymphadenopathy in left common iliac chain measuring 3.5 x 2.1 cm. There is no free intraperitoneal f luid. There is severe lumbar spondylosis. There is mild chronic anterior wedging of L1 and L2 vertebr al bodies. IMPRESSION: 1. Enhancing bilateral kidney masses, consistent with renal cell carcinoma. 2. Left common iliac lymphadenopathy, stable from 09/01/2019, consistent with treated lymphoma. Reviewed, dictated and finalized at location A. ENG FARMER IMPRESSION: 1. Enhancing bilateral kidney masses, consistent with renal cell carcinoma. 2. Left common iliac lymphadenopathy, stable from 09/01/2019, consistent with tr eated lymphoma.
[2019-11-12 15:25] LABS: Blood Urea Nitrogen 19 mg/dL (8-26); Estimated Glomerular Filt Rate 52
== END 2019-11-12 14:46 | disposition home or self-care (01) ==
LOC: ANHIMG 14:51
PROVIDERS: PCP Emergency Medicine; Visit Provider Internal Medicine Medical Oncology
DX: C82.28 Follicular lymphoma grade III, unspecified, lymph nodes of multiple sites (principal); N28.89 Other specified disorders of kidney and ureter; R59.0 Localized enlarged lymph nodes
CPT/HCPCS: 74170; Q9967

== ENCOUNTER 2020-02-19 14:32 | Outpatient (CLI) | payer MEDICARE, SELFPAY ==
--- NOTE | ~2020-02-19 | US_ITS ---
EXAMINATION:US venous doppler LE LT INDICATION:Left lower extremity swelling TECHNIQUE: Multiple grayscale, color flow and Doppler images of the left lower extremity deep venous systems were obtained and reviewed. COMPARISON:09/25/2018 FINDINGS: The common femoral, superficial femoral and popliteal veins demonstrate normal respiratory variation, augmentation and compressibility. Color flow is also seen within the posterior tibial, pe roneal, greater saphenous and profunda veins. IMPRESSION: 1: No lower extremity deep venous thrombosis. Reviewed, dictated and finalized at location A.
--- NOTE | ~2020-02-19 | US_ITS ---
EXAMINATION: US art doppler w press LE BI DATE: 02/19/2020 15:37 CDT INDICATION: Left leg swelling. Claudication. TECHNIQUE: Segmental pressures and plethysmographic and Doppler waveforms of the brachial and lower e xtremity arteries were obtained. COMPARISON: None. FINDINGS: Right and left brachial artery pressures of 161 mm Hg and 159 mm Hg, respectively, are concordant (no rmal difference <= 30 mmHg). The right ankle-brachial index (KAREN) is 1.17 (normal >= 0.9-1.0). The right great toe-brachial index (TBI) is 0.64 (normal >= 0.60). The right lower extremity segmental pressure gradients are normal (no rmal gradients <= 20-30 mmHg between adjacent levels on the same leg or the same levels on the two le gs). Arterial Doppler waveforms are biphasic. The left KAREN is 1.12. The left TBI is 0.74. The left lower extremity segmental pressure gradients are normal. Arterial Doppler waveforms are biphasic. IMPRESSION: 1. Normal bilateral ankle and toe brachial indices. Reviewed, dictated and finalized at location A.
== END 2020-02-19 14:33 | disposition home or self-care (01) ==
LOC: ANHIMG 14:47
PROVIDERS: PCP Emergency Medicine; Visit Provider Emergency Medicine
DX: M79.89 Other specified soft tissue disorders (principal); I73.9 Peripheral vascular disease, unspecified
CPT/HCPCS: 93923; 93971

== ENCOUNTER 2020-05-04 11:10 | Outpatient (CLI) | payer MEDICARE, SELFPAY ==
--- NOTE | ~2020-05-04 | XR_ITS ---
XR UGIAC wo kub DATE: 05/04/2020 12:56 INDICATION: Upper abdominal pain, abdominal distention and bloating. Vomiting. TECHNIQUE: Air-contrast upper gastrointestinal series 3 minutes fluoroscopy time DAP: 88 150 images COMPARISON: None FINDINGS: There is normal deglutition and esophageal peristalsis. There is a small sliding hiatal her alex. No stricture, mucosal fold thickening, erosion, ulceration or intraluminal mass lesion of the esophag us, stomach or duodenum is detected. The duodenal bulb is normally shaped. The proximal small bowel m ucosal pattern is normal. Surgical clips of the gallbladder fossa, consistent with history of cholecystectomy. IMPRESSION: Small sliding hiatal hernia Status post cholecystectomy Reviewed, dictated and finalized at Location A. Reviewed, dictated and finalized at location A.
--- NOTE | ~2020-05-04 | US_ITS ---
EXAMINATION: US abdomen complete DATE: 05/04/2020 12:09 INDICATION: Abdominal pain TECHNIQUE: Multiple grayscale and Doppler ultrasound images of the abdomen were obtained. COMPARISON: CT abdomen dated 11/12/2019 FINDINGS: The region of the pancreas is obscured by shadowing bowel gas. The proximal inferior vena cava is nor mal. The region of the abdominal aorta is obscured. Liver has normal echogenicity and contour, with a smooth surface. No liver lesion identified. No intrahepatic biliary duct dilation suspected. Portal venous flow was seen in the hepatopetal, normal direction and has normal Doppler waveform. Gallbladde r is not visualized consistent with prior cholecystectomy with surgical clips in the gallbladder chio a on prior CT. The common bile duct measures up to 8 mm which is within normal limits post cholecyste ctomy. The right kidney measures 10.4 x 5.0 x 5.2 cm and the left 9.0 x 4.3 x 4.8 cm. There are solid renal masses measuring 3.8 cm arising from the lower pole of the right kidney and up to 2.0 cm at th e upper pole of the left kidney. Bilateral increased renal cortical echogenicity consistent with medi bonita renal disease. There is no hydronephrosis. Spleen is normal measuring 10.2 cm in maximal length. IMPRESSION: 1. Bilateral renal masses measuring 3.8 cm on the right and 2.0 cm on the left consistent with renal cell carcinoma. 2. Mildly dilated common bile duct which measures up to 8 mm which is within normal limits post adi cystectomy. Reviewed, dictated and finalized at location A. IMPRESSION: 1. Bilateral renal masses measuring 3.8 cm on the right and 2.0 cm on the left consistent with renal cell carcinoma. 2. Mildly dilated common bile duct which measures up to 8 mm which is within no rmal limits post cholecystectomy.
== END 2020-05-04 11:11 | disposition home or self-care (01) ==
PROVIDERS: PCP Emergency Medicine; Visit Provider Emergency Medicine
DX: R10.9 Unspecified abdominal pain (principal); K44.9 Diaphragmatic hernia without obstruction or gangrene; N28.89 Other specified disorders of kidney and ureter; Z90.49 Acquired absence of other specified parts of digestive tract
CPT/HCPCS: 74246; 76700

== ENCOUNTER 2020-06-29 18:13 | Emergency (ER) | payer MEDICARE, SELFPAY ==
--- NOTE | ~2020-06-29 | CT_ITS ---
EXAMINATION: CTA chest PE protocol DATE: 06/29/2020 22:14 INDICATION: Chest pain and nausea TECHNIQUE: Computed tomography angiography (CTA) of the chest was performed with 100 mL Omnipaque-350 intravenous contrast timed to evaluate the pulmonary arteries. Coronal maximum intensity projection 3D-reconstructions were created by the technologist. The dose-length product (DLP) was 529.43 mGy-cm. Automated exposure control and iterative reconstruction technique were employed. COMPARISON: 08/23/2019, 11/12/2019 FINDINGS: The pulmonary arteries are well-opacified. No pulmonary embolism is identified. Evaluation of subsegmental peripheral pulmonary artery branches is slightly limited by respiratory motion artifa ct. There is mild dependent atelectasis. No pathologically enlarged thoracic lymph nodes are identifi ed. The heart size is normal. Calcified coronary artery atherosclerosis is noted. No pleural effusio n or pneumothorax is identified. A hemorrhagic cyst is noted in the left kidney upper pole. There is mild bilateral gynecomastia. Cysts of the liver dome measure up to 1.3 cm. There is moderate thoracic spondylosis. IMPRESSION: 1. No pulmonary embolism. 2. Mild dependent atelectasis. Reviewed, dictated and finalized at location A.
--- NOTE | ~2020-06-29 | XR_ITS ---
EXAMINATION: XR chest 2V DATE: 06/29/2020 18:49 INDICATION: Left-sided chest pain and nausea TECHNIQUE: PA and lateral views of the chest are obtained. COMPARISON: 09/04/2019 FINDINGS: The lungs are free of acute opacities. There is no pleural effusion or pneumothorax. The he art size is normal. Calcified left hilar lymph nodes are consistent with old granulomatous disease. T here is mild thoracic spondylosis. Cholecystectomy clips are noted. There are coronary artery stents. IMPRESSION: 1. No acute cardiopulmonary abnormality. Reviewed, dictated and finalized at location A.
--- NOTE | 2020-06-29 18:20 | ECG_ITS ---
Measurements Intervals [place] Rate: 84 P: 48 WI: 161 QRS: 23 QRSD: 140 T: 33 QT: 367 QTc: 434 Interpretive Statements SINUS RHYTHM RIGHT BUNDLE BRANCH BLOCK ABNORMAL ECG Electronically Signed On 06-29-2020 19:36:46 CDT by Oh Chaudhary D.O.
[2020-06-29 18:29] VITALS: BP 194/97; PULSE 91; RESP 18; TEMP 37.3; O2SAT 99
[2020-06-29 18:40] LABS: Basophils Absolute Auto 0.1 K/mm3 (0.0-0.1); Basophils Percent Auto 0.9 % (0.2-1.2); Eosinophils Absolute Auto 0.3 K/mm3 (0-0.3); Eosinophils Percent Auto 3.9 % (0-4.4); Hematocrit 42.3 % (42.0-52.0); Hemoglobin 13.9 g/dL (14.0-18.0); Immature Granulocyte Absolute 0.03 K/mm3 (0.00-0.031); Immature Granulocyte Percent A 0.4 % (0-0.5); Lymphocytes Absolute Auto 2.42 K/mm3 (0.9-3.2); Lymphocytes Percent Auto 30.3 % (18.3-44.2); Mean Corpuscular HGB Conc 32.9 g/dl (32-36); Mean Corpuscular Hemoglobin 28.8 pg (26-34); Mean Corpuscular Volume 87.6 fl (80-100); Mean Platelet Volume 9.7 fl (7.4-10.4); Monocytes Absolute Auto 0.7 K/mm3 (0.1-0.6); Monocytes Percent Auto 9.1 % (2.6-8.5); Neutrophils Absolute Auto 4.4 K/mm3 (1.3-6.7); Neutrophils Percent Auto 55.4 % (45.5-73.1); Platelet Count Result 208 k/mm3 (150-375); Red Blood Count 4.83 M/mm3 (4.6-6.20); Red Cell Distribution Width 13.5 % (11.5-14.5)
[2020-06-29 18:52] LABS: Anion Gap 8 mmol/L (8-16); Blood Urea Nitrogen 24 mg/dL (9-20); Calcium 9.3 mg/dL (8.4-10.2); Carbon Dioxide 30 mmol/L (22-30); Chloride 102 mmol/L (98-107); Estimated CRCL calculation 35 ml/min; Estimated Glomerular Filt Rate 52; Glucose 110 mg/dL (75-110); Potassium 4.1 mmol/L (3.4-5.0); Sodium 140 mmol/L (137-145)
[2020-06-29 19:04] LABS: Troponin I < 0.012 ng/mL (0.000-0.034)
[2020-06-29 19:07] LABS: INR 0.9; Prothrombin Time 11.7 Seconds (11.1-14.7)
[2020-06-29 19:08] LABS: Partial Thromboplastin Time 26.2 SECONDS (22.3-36.8)
[2020-06-29 19:14] VITALS: BP 171/98; PULSE 80; PULSE 84; RESP 20; TEMP 36.8; O2SAT 97
--- NOTE | 2020-06-29 19:17 | ED.GENADULT ---
HPI - General Adult General Chief complaint: Chest Pain Stated complaint: chest pain Time Seen by Provider: 06/29/20 19:04 Source: patient History of Present Illness HPI narrative: Patient is a 84 y/o male complaining of left sided sharp, stabbing chest pain after he did some leaf blowing. This occurred approximately 2 hours ago. He rates his pain as 7/10. He took Nitro, which relieved his pain. He had 2 episodes of these pains today, with each episode lasting less than 1 minute. He had some SOB, nausea in addition to chest pain. He did not vomit. Currently, he feels well with no chest pain. Related Data Home Medications Medication Instructions Recorded Confirmed amlodipine 5 mg DAILY 08/23/19 09/04/19 carbidopa-levodopa 1 tablet PO BID 08/23/19 09/04/19 finasteride 5 mg PO DAILY 08/23/19 09/04/19 fluticasone propionate 2 spray INTRANASAL DAILY 08/23/19 09/04/19 hydrochlorothiazide 25 mg PO DAILY 08/23/19 09/04/19 losartan 100 mg PO DAILY 08/23/19 09/04/19 metoprolol succinate 100 mg PO DAILY 08/23/19 09/04/19 omeprazole 20 mg PO DAILY 08/23/19 09/04/19 tamsulosin 0.4 mg PO HS 08/23/19 09/04/19 Allergies Allergy/AdvReac Type Severity Reaction Status Date / Time No Known Allergies Allergy Verified 09/04/19 05:34 Review of Systems Constitutional: Constitutional: Denies chills, Denies fever(s), Denies headache(s) and Denies weakness Eyes: Eyes: Denies blurry vision ENT: Denies headache(s) and Denies neck pain Cardiovascular: Cardiovascular: Reports chest pain and Reports dyspnea Respiratory: Respiratory: Denies cough and Reports dyspnea Gastrointestinal: Gastrointestinal: Denies abdominal pain, Denies diarrhea, Reports nausea and Denies vomiting Genitourinary: Genitourinary: Denies hematuria and Denies dysuria Musculoskeletal: Musculoskeletal: Denies back pain and Denies neck pain Neurologic: Denies headache(s) and Denies weakness [facility] [place] Past Medical History Medical History Afib Anxiety BPH (benign prostatic hyperplasia) CAD (coronary artery disease) Chronic back pain Collar bone fracture Depression GERD (gastroesophageal reflux disease) HLD (hyperlipidemia) HTN (hypertension) Kidney stones Leg fracture, left dx3 Non Hodgkin's lymphoma Peripheral neuropathy Renal mass Bilateral renal masses Right arm fracture Stage III chronic kidney disease Surgical History Surgical History History of cardiac cath History of cholecystectomy History of cystoscopy Stented coronary artery Family History Family History Sibling Hypertension Sibling Hypertension Sibling Acute myocardial infarction Social History Social History Social History: Patient elects make himself a DNR. Innominate to son Chucoh who is a [employer] professor in pharmacology to be the individual making medical decisions for him if he is unable. No pets at home. Smoking status: Never smoker Second hand tobacco smoke exposure: No Alcohol intake: current Substance use: never Gender identity (if verbalized by the patient): Male Spiritual care concerns: No Exam Const: General: no acute distress and well developed Orientation/consciousness: oriented to person, oriented to place, oriented to time and patient oriented x3 HENMT: Head: normocephalic Ears: external ears normal General nose exam: Normal external nose present Eyes: General: appearance normal, both eyes and all related structures Conjunctivae: conjunctivae normal Neck: Neck: normal visual inspection and full ROM Chest: Chest palpation & inspection: normal inspection of the chest and no tenderness Resp: Effort & Inspection: normal respiratory effort Auscultation: clear to auscultation bilaterally Cardio: Rate: regular rate Rhythm: regular rhythm GI:
[2020-06-29] MEDS: ASPIRIN 81 MG CHEWABLE TABLET 324 MG PO (19:54)
--- NOTE | 2020-06-29 19:55 | PC.NURSE ---
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
[2020-06-29 20:29] LABS: D Dimer 0.78 ug/mL (<0.48)
[2020-06-29 21:00] VITALS: BP 172/88; PULSE 88; RESP 19; O2SAT 99
[2020-06-29 21:55] LABS: Troponin I 0.014 ng/mL (0.000-0.034)
[2020-06-29] MEDS: LORazepam (*CRX) 0.5 MG TABLET PO (22:36)
[2020-06-29 22:40] VITALS: BP 181/79; PULSE 84; RESP 22; O2SAT 96
[2020-06-29 23:50] VITALS: BP 161/88; PULSE 81; RESP 19; O2SAT 97
== END 2020-06-29 23:50 | disposition home or self-care (01) ==
PROVIDERS: Emergency Provider Emergency Medicine; PCP Emergency Medicine
DX: R07.9 Chest pain, unspecified (principal); I48.91 Unspecified atrial fibrillation; N40.0 Benign prostatic hyperplasia without lower urinary tract symptoms; I25.10 Atherosclerotic heart disease of native coronary artery without angina pectoris; K21.9 Gastro-esophageal reflux disease without esophagitis; E78.5 Hyperlipidemia, unspecified; Z87.442 Personal history of urinary calculi; I12.9 Hypertensive chronic kidney disease with stage 1 through stage 4 chronic kidney disease, or unspecified chronic kidney disease; N18.30 Chronic kidney disease, stage 3 unspecified; G62.9 Polyneuropathy, unspecified; Z95.5 Presence of coronary angioplasty implant and graft; I45.10 Unspecified right bundle-branch block
CPT/HCPCS: 36415; 71046; 71275; 80048; 84484; 85025; 85380; 85610; 85730; 93005; 99284; A9270; Q9967

== ENCOUNTER 2021-02-02 15:05 | Emergency (ER) | payer MEDICARE, SELFPAY ==
[2021-02-02 15:15] VITALS: BP 191/95; PULSE 90; RESP 16; TEMP 37.2; O2SAT 97
--- NOTE | 2021-02-02 15:17 | ED.GENADULT ---
HPI - General Adult General Chief complaint: Ear Stated complaint: ear infection Time Seen by Provider: 02/02/21 15:17 Source: patient and RN notes reviewed Mode of arrival: ambulatory Limitations: no limitations History of Present Illness HPI narrative: 85-year-old male presents with complaints of right ear being clogged, tinnitus, otalgia, and decrease hearing for the past 4 days. Tab reports being sent here from Dr. Michael office to have ear wax removed. Nose spray without relief. Denies swimming or getting water into ear. Denies URI symptoms, No high fevers. Denies injury to the ear. No nasal drainage and congestion. Denies nausea, vomiting, and dizziness. Tolerating po intake well. Remains active. The patient reports he have not been diagnosed with COVID-19. The patient reports he received 2 Pfizer vaccines (September and October). The patient reports he is not waiting for the results of a COVID-19 lab test. The patient reports he do not have chills, weakness, or fatigue. The patient reports he do not have a new or worsening cough or shortness of breath. Denies chest pain. The patient reports he do not have any rhinorrhea, congestion, loss of taste or smell, sore throat, abdominal pain, and diarrhea. Denies recent traveling. Denies concerns for COVID-19 or exposures been home with limited outdoor exposure except for essential household needs and return home. At this time, patient is not suspected of having COVID-19. Some parts of this dictation were generated by voice recognition software and may contain typographical and/or grammatical inaccuracies. Related Data Home Medications Medication Instructions Recorded Confirmed amlodipine 5 mg DAILY 08/23/19 02/02/21 carbidopa-levodopa 1 tablet PO BID 08/23/19 02/02/21 finasteride 5 mg PO DAILY 08/23/19 02/02/21 fluticasone propionate 2 spray INTRANASAL DAILY 08/23/19 02/02/21 losartan 100 mg PO DAILY 08/23/19 02/02/21 metoprolol succinate 100 mg PO DAILY 08/23/19 02/02/21 omeprazole 20 mg PO DAILY 08/23/19 02/02/21 tamsulosin 0.4 mg PO HS 08/23/19 02/02/21 Allergies Allergy/AdvReac Type Severity Reaction Status Date / Time No Known Allergies Allergy Verified 09/04/19 05:34 Review of Systems Review of Systems: Narrative: CONSTITUTIONAL: Denies fever, chills, sweats. EYES: Denies visual changes, redness, discharge. ENT: Denies rhinorrhea, congestion, sore throat, ear drainage, itching. Complains of RT otalgia, ear decrease hearing, tinnitus, and clogged feeling. CARDIOVASCULAR: Denies chest pain, palpitations, edema. RESPIRATORY: Denies dyspnea, wheezing, cough. GASTROINTESTINAL: Denies abdominal pain, nausea, vomiting, diarrhea. SKIN: Denies rash or itching. MUSCULOSKELETAL: Denies acute back pain, joint pain, or myalgia. NEUROLOGIC: Denies numbness or focal weakness. PSYCHIATRIC: Denies anxiety or depression. All systems reviewed & are unremarkable except as noted in HPI and below. [facility] Past Medical History Medical History (Updated 02/03/21 @ 00:00 by Background Dadenise) Afib Anxiety BPH (benign prostatic hyperplasia) CAD (coronary artery disease) Chronic back pain Collar bone fracture Depression GERD (gastroesophageal reflux disease) HLD (hyperlipidemia) HTN (hypertension) Kidney stones Leg fracture, left dx3 Non Hodgkin's lymphoma Peripheral neuropathy Renal mass Bilateral renal masses Right arm fracture Stage III chronic kidney disease Surgical History Surgical History History of cardiac cath History of cholecystectomy History of cystoscopy Stented coronary artery Family History Family History Sibling Hypertension Sibling Hypertension Sibling Acute myocardial infarction Social History Social History (Updated 02/02/21 @ 15:23 by TERRI Mauro) Social History: Patient elects make himself a DNR.
[2021-02-02 15:18] VITALS: BP 191/95; PULSE 90; RESP 16; TEMP 37.2; O2SAT 97
--- NOTE | 2021-02-02 15:24 | PC.NURSE ---
Right ear irrigtion with warm water and H2O2 by Oscar Sawyer NP
[2021-02-02 15:37] VITALS: BP 168/84
== END 2021-02-02 15:39 | disposition home or self-care (01) ==
PROVIDERS: Emergency Provider Nurse Practitioner Family; PCP Emergency Medicine
DX: H61.21 Impacted cerumen, right ear (principal); I48.91 Unspecified atrial fibrillation; N40.0 Benign prostatic hyperplasia without lower urinary tract symptoms; I25.10 Atherosclerotic heart disease of native coronary artery without angina pectoris; K21.9 Gastro-esophageal reflux disease without esophagitis; E78.5 Hyperlipidemia, unspecified; I13.10 Hypertensive heart and chronic kidney disease without heart failure, with stage 1 through stage 4 chronic kidney disease, or unspecified chronic kidney disease; N18.30 Chronic kidney disease, stage 3 unspecified; Z85.71 Personal history of Hodgkin lymphoma; G62.9 Polyneuropathy, unspecified
CPT/HCPCS: 69210; 99212; G0463

== ENCOUNTER 2021-12-21 19:27 | Emergency (ER) | payer MEDICARE, SELFPAY ==
--- NOTE | ~2021-12-21 | XR_ITS ---
EXAMINATION: XR chest 2V DATE: 12/21/2021 19:59 INDICATION: Chest pain. TECHNIQUE: Frontal and lateral views of the chest were obtained. COMPARISON: Chest 2 views 06/29/2020, chest CT 06/29/2020 FINDINGS: There is no pneumonia, pleural effusion, or pneumothorax. The heart size is normal. Calcifi ed left hilar lymph nodes are consistent with old granulomatous disease. Surgical clips in the right upper quadrant are likely from cholecystectomy. IMPRESSION: 1. No acute cardiopulmonary disease. Reviewed, dictated and finalized at location A.
--- NOTE | 2021-12-21 19:30 | ECG_ITS ---
Measurements Intervals [place] Rate: 73 P: MA: 0 QRS: 4 QRSD: 140 T: 26 QT: 387 QTc: 427 Interpretive Statements SINUS RHYTHM WITH PREMATURE ATRIAL CONTRACTIONS BASELINE ARTIFACT RIGHT BUNDLE BRANCH BLOCK [120+ ms QRS DURATION, UPRIGHT V1, 40+ ms S IN I/aVL/V4/V5/V6] ABNORMAL ECG COMPARED TO ECG 06/29/2020 18:17:38 PREMATURE ATRIAL CONTRACTIONS ARE NOW OBSERVED Electronically Signed On 12-22-2021 15:35:09 CDT by Gurjit Ortiz M.D.
--- NOTE | 2021-12-21 19:36 | ED.CHESTPAIN ---
HPI - Chest Pain General Chief Complaint: Chest Pain Stated Complaint: chest pain Time Seen by Provider: 12/21/21 19:35 Source: patient and family Mode of arrival: ambulatory Limitations: no limitations History of Present Illness HPI narrative: The patient is an 86-year-old male with a history of atrial fibrillation, hypertension, hyperlipidemia, non-Hodgkin's lymphoma currently in remission, coronary artery disease, presenting to the emergency department for evaluation of chest pain. Chest pain occurred approximately 1:30 PM while the patient was at rest. Reports left-sided chest pain with radiation into his left arm. Describes pain as moderate in nature. Reported associated nausea, diaphoresis. Denies ripping or tearing sensation to the back or lower flanks. Denies current abdominal pain patient took a nitroglycerin when the pain did not subside, did not notice much improvement from that. He then took a second nitroglycerin and did note improvement following that medication. Patient states his pain is currently very mild but does state that it is persistent. No pleuritic pain or shortness of breath. Patient has a significant cardiac history, states he has history of numerous stents placed. In the past, patient has followed with Dr. Wetzel with admissions at this hospital but typically follows with the heart care group in [place]. Per chart review, last admission for patient was in 2019 for chest pain, cardiac work-up essentially was negative but he was found to have possible kidney cancer without admission. Dr. Wetzel saw the patient without admission. Patient was then seen last year for chest pain that occurred with exertional activity and had a negative work-up and thus opted for discharge home and not observation. Related Data Home Medications Medication Instructions Recorded Confirmed amlodipine 5 mg DAILY 08/23/19 02/02/21 carbidopa-levodopa 1 tablet PO BID 08/23/19 02/02/21 finasteride 5 mg PO DAILY 08/23/19 02/02/21 fluticasone propionate 2 spray INTRANASAL DAILY 08/23/19 02/02/21 losartan 100 mg PO DAILY 08/23/19 02/02/21 metoprolol succinate 100 mg PO DAILY 08/23/19 02/02/21 omeprazole 20 mg PO DAILY 08/23/19 02/02/21 tamsulosin 0.4 mg PO HS 08/23/19 02/02/21 Allergies Allergy/AdvReac Type Severity Reaction Status Date / Time No Known Allergies Allergy Verified 09/04/19 05:34 Review of Systems Review of Systems: CONSTITUTIONAL: Denies fever, chills, or sweats. EYES: Denies visual changes, redness, or discharge. ENT: Denies rhinorrhea, congestion, sore throat, or otalgia. CARDIOVASCULAR: Reports chest pain without palpitations or edema RESPIRATORY: Denies cough or dyspnea. GASTROINTESTINAL: Denies abdominal pain, reports nausea without vomiting GENITOURINARY: Denies dysuria or hematuria. SKIN: Denies rash or itching. MUSCULOSKELETAL: Denies back pain, joint pain, reports left arm pain, resolved NEUROLOGIC: Denies headache, numbness, or weakness. [facility] Past Medical History Medical History (Updated 12/21/21 @ 22:57 by Jada Nash MD) Afib Anxiety BPH (benign prostatic hyperplasia) CAD (coronary artery disease) Chronic back pain Collar bone fracture Depression GERD (gastroesophageal reflux disease) HLD (hyperlipidemia) HTN (hypertension) Kidney stones Leg fracture, left dx3 Non Hodgkin's lymphoma Peripheral neuropathy Renal mass Bilateral renal masses Right arm fracture Stage III chronic kidney disease Surgical History Surgical History History of cardiac cath History of cholecystectomy History of cystoscopy Stented coronary artery Family History Family History Sibling Hypertension Sibling Hypertension Sibling Acute myocardial infarction Social History Social History Social History: Patient elects make himself a D
[2021-12-21 19:40] VITALS: BP 170/78; PULSE 78; PULSE 85; RESP 19; TEMP 36.6; O2SAT 94
[2021-12-21 19:43] LABS: Basophils Absolute Auto 0.1 K/mm3 (0.0-0.1); Basophils Percent Auto 0.6 % (0.2-1.2); Eosinophils Absolute Auto 0.4 K/mm3 (0-0.3); Eosinophils Percent Auto 4.6 % (0-4.4); Hematocrit 45.9 % (42.0-52.0); Hemoglobin 14.8 g/dL (14.0-18.0); Immature Granulocyte Absolute 0.02 K/mm3 (0.00-0.031); Immature Granulocyte Percent A 0.2 % (0-0.5); Mean Corpuscular HGB Conc 32.2 g/dl (32-36); Mean Corpuscular Hemoglobin 29.5 pg (26-34); Mean Corpuscular Volume 91.6 fl (80-100); Mean Platelet Volume 9.8 fl (7.4-10.4); Monocytes Absolute Auto 0.8 K/mm3 (0.1-0.6); Monocytes Percent Auto 9.4 % (2.6-8.5); Neutrophils Absolute Auto 4.7 K/mm3 (1.3-6.7); Neutrophils Percent Auto 57.2 % (45.5-73.1); Platelet Count Result 197 k/mm3 (150-375); Red Blood Count 5.01 M/mm3 (4.6-6.20); Red Cell Distribution Width 13.5 % (11.5-14.5); White Blood Count 8.2 K/mm3 (4.5-10.0)
[2021-12-21] MEDS: ASPIRIN 81 MG CHEWABLE TABLET 324 MG PO (19:49)
[2021-12-21 19:57] LABS: Alanine Aminotransferase 22 U/L (4-50); Albumin Level 4.1 g/dL (3.5-5.1); Alkaline Phosphatase 123 U/L (38-126); Anion Gap 5 mmol/L (8-16); Aspartate Amino Transferase 32 U/L (17-59); Bilirubin,Total 0.5 mg/dL (0.2-1.3); Blood Urea Nitrogen 21 mg/dL (9-20); Carbon Dioxide 30 mmol/L (22-30); Chloride 106 mmol/L (98-107); Estimated Glomerular Filt Rate 52; Glucose 132 mg/dL (65-110); INR 0.9; Lipase 91 U/L (23-300); Prothrombin Time 12.1 Seconds (11.1-14.7); Sodium 141 mmol/L (137-145)
[2021-12-21 19:58] LABS: Partial Thromboplastin Time 25.5 SECONDS (22.3-36.8)
[2021-12-21 20:07] LABS: Troponin I < 0.012 ng/mL (0.000-0.034)
[2021-12-21] MEDS: ONDANSETRON INJ 4 MG/2 ML VIAL IV PUSH (20:42)
[2021-12-21] MEDS: SODIUM CHLORIDE 0.9% IV 500 ML 999 ML IV CONT (20:43)
[2021-12-21 20:45] VITALS: BP 157/73; PULSE 76; RESP 18; O2SAT 95
[2021-12-21 21:01] VITALS: BP 153/84; PULSE 76; RESP 17; O2SAT 90
[2021-12-21 22:01] VITALS: BP 115/81; PULSE 78; RESP 19; O2SAT 91
[2021-12-21 22:41] LABS: Troponin I < 0.012 ng/mL (0.000-0.034)
[2021-12-21 23:09] VITALS: BP 145/61; PULSE 84; RESP 19; O2SAT 98
== END 2021-12-21 23:11 | disposition home or self-care (01) ==
PROVIDERS: Emergency Provider Emergency Medicine; PCP Emergency Medicine
DX: R07.89 Other chest pain (principal); I48.91 Unspecified atrial fibrillation; F41.9 Anxiety disorder, unspecified; I25.10 Atherosclerotic heart disease of native coronary artery without angina pectoris; F32.9 Major depressive disorder, single episode, unspecified; K21.9 Gastro-esophageal reflux disease without esophagitis; I12.9 Hypertensive chronic kidney disease with stage 1 through stage 4 chronic kidney disease, or unspecified chronic kidney disease; N18.30 Chronic kidney disease, stage 3 unspecified
CPT/HCPCS: 36415; 71046; 80053; 83690; 84484; 85025; 85610; 85730; 93005; 96361; 96374; 99284; A9270; J2405; J7040

== ENCOUNTER 2022-12-01 15:18 | Observation (INO) | payer MEDICARE, SELFPAY ==
[2022-12-01] VITALS (10 sets, daily range): BP systolic 152–203; BP diastolic 72–122; PULSE 73–94; RESP 16–27; TEMP 36.2–37.1; O2SAT 93–97; BMI 34.0
--- NOTE | ~2022-12-01 | XR_ITS ---
XR chest 2V DATE: 12/01/2022 16:07 INDICATION: Chest pressure, pain TECHNIQUE: 2 views COMPARISON: 12/21/2021 PA and lateral chest FINDINGS: Normal heart size. Aortic calcification and mild tortuosity. No hilar or mediastinal enlarg ement. No pulmonary infiltrate or consolidation, pleural effusion or pulmonary vascular congestion or pneumo thorax. Status post cholecystectomy. IMPRESSION: No active cardiopulmonary disease Reviewed, dictated and finalized at location B. WPF DEVELOPER
--- NOTE | 2022-12-01 15:25 | ECG_ITS ---
Measurements Intervals [place] Rate: 98 P: [place]: 0 QRS: -9 QRSD: 146 T: 11 QT: 382 QTc: 489 Interpretive Statements SINUS RHYTHM ATRIAL PREMATURE COMPLEXES RIGHT BUNDLE BRANCH BLOCK BASELINE WANDER- III, V4 ABNORMAL ECG COMPARED TO ECG 12/21/2021 19:37:23 NO SIGNIFICANT CHANGES Electronically Signed On 12-01-2022 16:17:31 STAFF TRAINER by Oh Chaudhary D.O.
[2022-12-01 15:57] LABS: Basophils Absolute Auto 0.1 K/mm3 (0.0-0.1); Basophils Percent Auto 0.8 % (0.2-1.2); Eosinophils Absolute Auto 0.3 K/mm3 (0-0.3); Eosinophils Percent Auto 3.6 % (0-4.4); Hematocrit 46.3 % (42.0-52.0); Hemoglobin 15.3 g/dL (14.0-18.0); Immature Granulocyte Absolute 0.02 K/mm3 (0.00-0.031); Immature Granulocyte Percent A 0.3 % (0-0.5); Lymphocytes Absolute Auto 1.97 K/mm3 (0.9-3.2); Lymphocytes Percent Auto 26.2 % (18.3-44.2); Mean Corpuscular Hemoglobin 29.4 pg (26-34); Mean Corpuscular Volume 88.9 fl (80-100); Mean Platelet Volume 9.8 fl (7.4-10.4); Monocytes Absolute Auto 0.5 K/mm3 (0.1-0.6); Monocytes Percent Auto 6.6 % (2.6-8.5); Neutrophils Absolute Auto 4.7 K/mm3 (1.3-6.7); Neutrophils Percent Auto 62.5 % (45.5-73.1); Platelet Count Result 195 k/mm3 (150-375); Red Blood Count 5.21 M/mm3 (4.6-6.20); Red Cell Distribution Width 13.6 % (11.5-14.5); White Blood Count 7.5 K/mm3 (4.5-10.0)
[2022-12-01 16:09] LABS: Partial Thromboplastin Time 25.4 SECONDS (22.3-36.8); Prothrombin Time 12.4 Seconds (11.1-14.7)
[2022-12-01 16:18] LABS: Alanine Aminotransferase 26 U/L (6-50); Albumin Level 4.4 g/dL (3.5-5.1); Alkaline Phosphatase 132 U/L (38-126); Anion Gap 5 mmol/L (8-16); Aspartate Amino Transferase 30 U/L (17-59); Bilirubin,Total 0.6 mg/dL (0.2-1.3); Blood Urea Nitrogen 18 mg/dL (9-20); Calcium 9.5 mg/dL (8.4-10.2); Carbon Dioxide 32 mmol/L (22-30); Chloride 102 mmol/L (98-107); Estimated Glomerular Filt Rate 57; Glucose 144 mg/dL (65-110); Lipase 109 U/L (23-300); Potassium 3.8 mmol/L (3.4-5.0); Sodium 139 mmol/L (137-145)
[2022-12-01 16:28] LABS: Troponin I 0.025 ng/mL (0.000-0.034)
--- NOTE | 2022-12-01 17:44 | ED.CHESTPAIN ---
HPI - Chest Pain General Chief Complaint: Chest Pain Stated Complaint: chest pain Time Seen by Provider: 12/01/22 17:17 History of Present Illness HPI narrative: 87-year-old male with a history of CAD status post multiple stents, hypertension, hyperlipidemia presenting with chest pain. Patient states that around noon today he developed some squeezing on the left side of his chest. He was hoping it would go away but unfortunately it progressed until he became a 10 out of 10 pressure-like pain. States that he took some nitro which brought the pain down to a 1 out of 10. States that this episode was associated with shortness of breath. No diaphoresis or nausea. States that he has seen Dr. Lentz in the past. Patient is asking to go home if possible. Denies headache, numbness or weakness, lightheadedness, abdominal pain, vomiting, diarrhea, dysuria. Reports chronic leg swelling. Related Data Home Medications Medication Instructions Recorded Confirmed amlodipine 5 mg tablet 5 mg PO DAILY 08/23/19 12/02/22 carbidopa 25 mg-levodopa 100 mg 1 tablet PO BID 08/23/19 02/02/21 tablet finasteride 5 mg tablet 5 mg PO DAILY 08/23/19 02/02/21 fluticasone propionate 50 2 spray intranasal DAILY 08/23/19 02/02/21 mcg/actuation nasal spray,suspension losartan 100 mg tablet 100 mg PO DAILY 08/23/19 12/02/22 metoprolol succinate 100 mg 50 mg PO DAILY 08/23/19 12/02/22 tablet,extended release 24 hr omeprazole 20 mg capsule,delayed 20 mg PO DAILY 08/23/19 12/02/22 release tamsulosin 0.4 mg capsule 0.4 mg PO HS 08/23/19 12/02/22 isosorbide mononitrate 60 mg 120 mg PO QAM 12/02/22 12/02/22 tablet,extended release 24 hr Allergies Allergy/AdvReac Type Severity Reaction Status Date / Time No Known Allergies Allergy Verified 09/04/19 05:34 Review of Systems Review of Systems: All systems reviewed & are unremarkable except as noted in HPI and below PMFSH Past Medical History Medical History (Updated 12/04/22 @ 21:07 by Eliz Price MD) Afib Anxiety BPH (benign prostatic hyperplasia) CAD (coronary artery disease) Chronic back pain Collar bone fracture Depression GERD (gastroesophageal reflux disease) HLD (hyperlipidemia) HTN (hypertension) Kidney stones Leg fracture, left dx3 Non Hodgkin's lymphoma Peripheral neuropathy Renal mass Bilateral renal masses Right arm fracture Stage III chronic kidney disease Surgical History Surgical History History of cardiac cath History of cholecystectomy History of cystoscopy Stented coronary artery Family History Family History Sibling Hypertension Sibling Hypertension Sibling Acute myocardial infarction Social History Social History Social History: Patient elects make himself a DNR. Innominate to son Chucho who is a [employer] professor in pharmacology to be the individual making medical decisions for him if he is unable. No pets at home. Smoking status: Never smoker Tobacco type: cigarettes Second hand tobacco smoke exposure: No Alcohol intake: former Alcohol use details: 2-3 per year Substance use: never Lack of Transportation: YES Lack of Food: Never True Current Housing: I Have Housing Concerned About Future Housing: No Difficulty Paying Gas/Electric Bills: No Difficulty Paying for Meds: No Currently Unemployed: No Education: Master's Degree or Higher Difficulty w/ Childcare or Family Care: No Living arrangements: alone Occupation/Education: retired Gender identity (if verbalized by the patient): Male Spiritual care concerns: No Exam Narrative: GENERAL: Elderly male sitting in bed in no acute distress HEAD: Normocephalic, atraumatic. EYES: PERRLA and EOMI. ENT: Nares clear, no rhinorrhea or epistaxis. Mucous membranes moist. NECK: Supple. C
--- NOTE | 2022-12-01 19:11 | PC.NURSE ---
Patient report given to KARYNA Fishman. All questions answered and care of patient transferred.
[2022-12-01 19:39] LABS: Troponin I 0.045 ng/mL (0.000-0.034)
[2022-12-01] MEDS: ASPIRIN 81 MG CHEWABLE TABLET 324 MG PO (19:57)
--- NOTE | 2022-12-01 20:35 | PM.IMHP ---
H&P: HPI History of Present Illness Date/Time: 12/01/22 20:35 Chief Complaint: Chest pain Narrative: This is an 87-year-old male with past medical history significant for hypertension, dyslipidemia, Parkinson's disease, benign prostatic hyperplasia, coronary artery disease status post stent placement. Patient comes to the emergency room due to precordial chest pain nonradiating lasted for 2-3 hours patient took nitro and isosorbide with no relieve at the time of my visit patient rated his pain at 0/10 in intensity patient states that pain we felt like a squeeze felt lightheaded and near syncope, patient denies any pain in the prior days, felt nauseous but no vomiting, denies any PND, orthopnea has bilateral lower extremity swelling which is usual for him, no fevers, no rigors, no chills, no cough, no sputum production. Preliminary workup was significant for elevated troponin. Patient is been placed in observation for further evaluation management and treatment. Review of Systems Review of Systems: Precordial chest pain, near-syncope, nausea. Constitutional: Constitutional: Denies body ache(s), Denies chills, Denies fatigue, Denies fever(s), Denies lethargy, Denies malaise, Denies poor appetite and Denies weakness Eyes: Eyes: Denies change in vision ENT: Denies dysphagia and Denies odynophagia Cardiovascular: Cardiovascular: Reports chest pain, Denies syncope, Denies irregular heart rhythm, Reports leg edema, Reports lightheadedness, Denies radiating jaw, neck or arm pain, Denies palpitations, Denies orthopnea and Denies paroxysmal nocturnal dyspnea Respiratory: Respiratory: Denies chest congestion, Denies cough, Denies excessive phlegm production, Denies pain on inspiration and Denies dyspnea Gastrointestinal: Gastrointestinal: Denies abdominal pain, Denies dyspepsia, Denies heartburn, Reports nausea and Denies vomiting Genitourinary: Genitourinary: Denies dysuria Musculoskeletal: Musculoskeletal: Denies back pain, Denies myalgias, Denies joint swelling and Denies muscle weakness Integumentary/Breasts: Skin/Breast: Denies rash Neurologic: Denies focal weakness and Denies Sensory deficit (Neuro) Psychiatric: Psychiatric: Reports no additional psychiatric complaints and Reports as per HPI Endocrine: Endocrine: Denies cold intolerance, Denies flushing, Denies heat intolerance, Denies polyphagia, Denies polydipsia and Denies palpitations Hematologic/Lymphatic: Hematologic/Lymphatic: Reports no additional hematologic/lymphatic complaints and Reports as per HPI Allergic/Immunologic: Allergic/Immunologic: Reports no additional allergic/immunologic complaints and Reports as per HPI PMFSH Past Medical History Medical History Afib Anxiety BPH (benign prostatic hyperplasia) CAD (coronary artery disease) Chronic back pain Collar bone fracture Depression GERD (gastroesophageal reflux disease) HLD (hyperlipidemia) HTN (hypertension) Kidney stones Leg fracture, left dx3 Non Hodgkin's lymphoma Peripheral neuropathy Renal mass Bilateral renal masses Right arm fracture Stage III chronic kidney disease Surgical History Surgical History History of cardiac cath History of cholecystectomy History of cystoscopy Stented coronary artery Family History Family History Sibling Hypertension Sibling Hypertension Sibling Acute myocardial infarction Social History Social History Social History: Patient elects make himself a DNR. Innominate to son Chucho who is a [employer] professor in pharmacology to be the individual making medical decisions for him if he is unable. No pets at home. Smoking status: Never smoker Tobacco type: cigarettes Second hand tobacco smoke exposure: No Alcohol intake: former [employer]
[2022-12-01 20:42] LABS: Influenza A QL RT-PCR Negative (Negative); Influenza B QL RT-PCR Negative (Negative); SARS-CoV-2 RNA PCR Negative
--- NOTE | 2022-12-01 21:16 | ADMGEN ---
This patient, Tab Hughes, was admitted to IMU Room 206-01 at 2115. Patient/family oriented to hospital policies and general routines including ID bracelet, bed and alarms, visiting hours, pain management, procedures, bathroom and other care routines, personal items, smoking policy, room service/diet, and visiting hours. Information on how to activate the Rapid Response Team has been discussed. Patient/Family are encouraged to report perceived risks to care and to ask questions if they do not understand what they are told or what they should do.
[2022-12-01 22:39] LABS: Troponin I 0.053 ng/mL (0.000-0.034)
[2022-12-02] VITALS (7 sets, daily range): BP systolic 155–165; BP diastolic 77–96; PULSE 39–94; RESP 18–24; TEMP 36.4–36.5; O2SAT 95–99
--- NOTE | 2022-12-02 00:33 | ECG_ITS ---
Measurements Intervals [place] Rate: 80 P: 39 NH: 172 QRS: -9 QRSD: 156 T: 5 QT: 431 QTc: 499 Interpretive Statements SINUS RHYTHM SUPRAVENTRICULAR BIGEMINY RIGHT BUNDLE BRANCH BLOCK ABNORMAL ECG COMPARED TO ECG 12/01/2022 15:20:31 SUPRAVENTRICULAR BIGEMINY NOW PRESENT Electronically Signed On 12-02-2022 6:55:14 GAS FITTER HELPER by Oh Chaudhary D.O.
--- NOTE | 2022-12-02 05:02 | PC.NURSE ---
I MONITORED THE MEDICATION DISPENSING AND CHARTING DONE ON THIS PATIENT BY RUSSELL HOLDEN RN AND I AGREE WITH EVERYTHING.
--- NOTE | 2022-12-02 09:00 | PM.CNCAR ---
Assessment and Plan Assessment and plan (1) CAD (coronary artery disease): Qualifiers: Coronary Disease-Associated Artery/Lesion type: [place] artery [place] vs. transplanted heart: [place] heart Associated angina: with unstable angina Qualified Code(s): I25.110 - Atherosclerotic heart disease of [place] coronary artery with unstable angina pectoris Code(s): I25.10 - Atherosclerotic heart disease of [place] coronary artery without angina pectoris Status: Acute (2) Non-ST elevation myocardial infarction (NSTEMI): Code(s): I21.4 - Non-ST elevation (NSTEMI) myocardial infarction Status: Acute (3) HTN (hypertension): Qualifiers: Hypertension type: essential hypertension Qualified Code(s): I10 - Essential (primary) hypertension Code(s): I10 - Essential (primary) hypertension Status: Acute (4) HLD (hyperlipidemia): Qualifiers: Hyperlipidemia type: unspecified Qualified Code(s): E78.5 - Hyperlipidemia, unspecified Code(s): E78.5 - Hyperlipidemia, unspecified Status: Acute (5) Chest pain: Code(s): R07.9 - Chest pain, unspecified Status: Acute Plan Patient has known complex coronary artery disease s/p complex and difficult high risk PCI in the past (most recently 2019) with residual lesions that are not amenable to revascularization. He has chronic stable angina, with an episode of more severe chest pain that occurred prior to admission. Troponins are mildly elevated. EKGs are unchanged compared to prior. Patient is now chest pain free and feels well. Discussed management options with the patient, including medical management, coronary angiography. Patient states that given his age, he prefers medical management. Patient was hypertensive on admission, but patient thinks he did not take all of his medications on day of presentation. Recommend to restart his home medications. For his coronary disease, continue with ASA, Plavix, statin, amlodipine, Imdur, beta ag. Okay for patient to be discharged home. Will arrange close follow-up with Dr. Zaldivar. Discussed return precautions with the patient. History of Present Illness History of Present Illness Consult date/time: 12/02/22 09:00 Requesting physician: Teagan Gtz MD Consult reason: chest pain Reason For Visit: CHEST PAIN Narrative: We are consulted for chest pain. This is an 87-year-old patient of Dr. Zaldivar's. He has a history of coronary artery disease. Patient last saw Dr. Zaldivar 09/2022. He has a history of coronary disease with stenting in the . He came to the hospital in 2019 with a couple days of intermittent ischemic type chest pain with a very modest rise in his troponin. Cardiac catheterization 08/2019 demonstrated: Three-vessel coronary artery disease with heavily calcified left coronary artery, significant proximal stenosis in the LAD is noted in the segment that is heavily calcified.? Ostium of 2nd diagonal and septal perforating complex are also involved. High-grade stenosis in the 1st OM branch of the circumflex. Visible stent material seen in the distal circumflex posterior branch that does not appear to have any flow-limiting lesions at this time. Large caliber dominant right coronary artery without significant stenosis in the trunk of the vessel.?The PDA is highly stenosed both at the ostium and in the midportion but appears to be too small to be suitable for PCI. Large RPL branches free of significant disease. With all of this disease, he was treated medically. Despite medical treatment, patient continued to be symptomatic of myocardial ischemia and therefore he underwent complex and high risk PCI with Dr. Goins at [place]. The patient underwent PCI involving rotational atherectomy and stenting of the high-grade calcific disease in the proximal third of the LAD. The procedure was difficult and challenging but successful. A small diagonal branch was crossed through the
--- NOTE | 2022-12-02 09:25 | PM.DS ---
DS: Admitting Diagnosis Discharge Date 12/02/22 Admitting Diagnosis chest pain DS: Discharge Diagnosis Discharge Diagnosis (1) Non-ST elevation myocardial infarction (NSTEMI): Code(s): I21.4 - Non-ST elevation (NSTEMI) myocardial infarction Status: Acute Assessment and Plan: Admit to IMU Serial cardiac enzymes Morphine, nitro, oxygen as needed EKG reviewed SINUS RHYTHM ATRIAL PREMATURE COMPLEXES RIGHT BUNDLE BRANCH BLOCK BASELINE WANDER- III, V4 ABNORMAL ECG COMPARED TO ECG 12/21/2021 19:37:23 NO SIGNIFICANT CHANGES Electronically Signed On 12-01-2022 16:17:31 RIPENING ROOM HAND by Oh Chaudhary D.O Cardiology consult (2) Stage III chronic kidney disease: Code(s): N18.3 - Chronic kidney disease, stage 3 (moderate) Status: Acute Assessment and Plan: Continue to monitor BUN and creatinine Currently patient's baseline (3) Non Hodgkin's lymphoma: Qualifiers: B-cell lymphoma type: unspecified B-cell Lymphoma site: intra-abdominal nodes Non-Hodgkin lymphoma type: B-cell Qualified Code(s): C85.13 - Unspecified B-cell lymphoma, intra-abdominal lymph nodes Code(s): C85.90 - Non-Hodgkin lymphoma, unspecified, unspecified site Status: Acute Assessment and Plan: On remission Follow-up in outpatient setting (4) HTN (hypertension): Qualifiers: Hypertension type: essential hypertension Qualified Code(s): I10 - Essential (primary) hypertension Code(s): I10 - Essential (primary) hypertension Status: Acute Assessment and Plan: Resume home meds Continue to monitor (5) CAD (coronary artery disease): Qualifiers: Associated angina: with unstable angina Coronary Disease-Associated Artery/Lesion type: [place] artery [place] vs. transplanted heart: [place] heart Qualified Code(s): I25.110 - Atherosclerotic heart disease of [place] coronary artery with unstable angina pectoris Code(s): I25.10 - Atherosclerotic heart disease of [place] coronary artery without angina pectoris Status: Acute Assessment and Plan: Continue home meds (6) Afib: Qualifiers: Atrial fibrillation type: paroxysmal Qualified Code(s): I48.0 - Paroxysmal atrial fibrillation Code(s): I48.91 - Unspecified atrial fibrillation Status: Acute Assessment and Plan: EKG with sinus rhythm at the present time DS: Summary Hospital Course Hospital Course: 87-year-old male presenting with chest pain. EKG and troponins were negative for acute cardiac event. Cardiology was consulted and thought patient was at his baseline. They are recommending discharge with follow-up in the office. See above for details. Time Spent with Patient Time attestation: Total time spent providing and/or coordinating discharge services: Exam Narrative: General: No acute distress, alert and oriented per baseline HEENT: Atraumatic, normocephalic, mucous membranes moist CV: Regular rate and rhythm, S1, S2 Lungs: Clear to auscultation bilaterally, no rales or crackles noted, no wheezes, good air entry Abdomen: Soft, nontender, nondistended Extremities: Normal to inspection Skin: No rashes noted, no lesions or wounds seen Psych: Euthymic, normal affect DS: Data Data Completed and Pending Labs on day of discharge: Labs from last 24 hours 12/01/22 12/01/22 12/01/22 21:57 20:02 18:56 WBC RBC Hgb Hct MCV MCH MCHC RDW Plt Count MPV Immature Gran % (Auto) Neut % (Auto) Lymph % (Auto) Piatt % (Auto) Eos % (Auto) Baso % (Auto) Lymph # (Auto) Piatt # (Auto) Eos # (Auto) Baso # (Auto) Abs Immat Gran (auto) Absolute Neuts (auto) Absolute Nucleated RBC Nucleated RBC % PT INR APTT Sodium Potassium Chloride Carbon Dioxide Anion Gap BUN Creatinine Estim Creat Clear Calc Estimated GFR Glucose Calcium Total Bilirubin
[2022-12-02] MEDS: PANTOPRAZOLE 40 MG TABLET PO (10:22)
[2022-12-02] MEDS: METOPROLOL SUCCINATE EXT REL 50 MG TABCR PO (10:22)
[2022-12-02] MEDS: LOSARTAN POTASSIUM 100 MG TABLET PO (10:22)
[2022-12-02] MEDS: ISOSORBIDE MONONITRATE 60 MG TAB.ER.24H 120 MG PO (10:23)
[2022-12-02] MEDS: amLODIPine BESYLATE 5 MG TABLET PO (10:23)
[2022-12-02] MEDS: CLOPIDOGREL BISULFATE 75 MG TABLET PO (10:23)
== END 2022-12-02 11:33 | disposition home or self-care (01) ==
LOC: ANHED 17:20 → ANHIMU 21:07
PROVIDERS: Emergency Medicine; Admitting Provider Internal Medicine; Emergency Provider Emergency Medicine; PCP Emergency Medicine; Visit Provider Student in an Organized Health Care Education/Training Program
DX: I21.4 Non-ST elevation (NSTEMI) myocardial infarction (principal); I12.9 Hypertensive chronic kidney disease with stage 1 through stage 4 chronic kidney disease, or unspecified chronic kidney disease; N18.30 Chronic kidney disease, stage 3 unspecified; C85.13 Unspecified B-cell lymphoma, intra-abdominal lymph nodes; I25.110 Atherosclerotic heart disease of native coronary artery with unstable angina pectoris; Z95.5 Presence of coronary angioplasty implant and graft; I48.91 Unspecified atrial fibrillation; R77.8 Other specified abnormalities of plasma proteins; G20 Parkinson's disease; Z20.822 Contact with and (suspected) exposure to COVID-19; E78.5 Hyperlipidemia, unspecified; F41.9 Anxiety disorder, unspecified; F32.A Depression, unspecified; R06.02 Shortness of breath; N40.0 Benign prostatic hyperplasia without lower urinary tract symptoms; R94.31 Abnormal electrocardiogram [ECG] [EKG]; K21.9 Gastro-esophageal reflux disease without esophagitis; G62.9 Polyneuropathy, unspecified; G89.29 Other chronic pain; M54.9 Dorsalgia, unspecified; M79.89 Other specified soft tissue disorders; Z66 Do not resuscitate; Z79.51 Long term (current) use of inhaled steroids; Z79.82 Long term (current) use of aspirin; Z79.02 Long term (current) use of antithrombotics/antiplatelets; Z79.899 Other long term (current) drug therapy; Z82.49 Family history of ischemic heart disease and other diseases of the circulatory system
CPT/HCPCS: 36415; 71046; 80053; 83690; 84484; 85025; 85610; 85730; 87636; 93005; 99285; A9270; G0378

== ENCOUNTER 2023-01-31 11:12 | Emergency (ER) | payer MEDICARE, SELFPAY ==
--- NOTE | ~2023-01-31 | XR_ITS ---
EXAMINATION: XR chest 1V portable DATE: 01/31/2023 12:10 INDICATION: Congestive heart failure with bilateral lower extremity swelling TECHNIQUE: frontal view of the chest was obtained. COMPARISON: Chest radiograph dated 12/01/2022 FINDINGS: Small lung volumes with no focal airspace opacities, pulmonary edema, pleural effusion or pneumothora x. The cardiomediastinal silhouette is normal. IMPRESSION: 1. Small lung volumes. No other acute cardiopulmonary disease. Reviewed, dictated and finalized at location A.
[2023-01-31 11:25] VITALS: BP 176/82; PULSE 89; RESP 16; TEMP 36.8; O2SAT 94
--- NOTE | 2023-01-31 11:29 | ECG_ITS ---
Measurements Intervals [place] Rate: 84 P: [place]: 0 QRS: 6 QRSD: 146 T: 30 QT: 377 QTc: 448 Interpretive Statements SINUS RHYTHM SUPRAVENTRICULAR BIGEMINY RIGHT BUNDLE BRANCH BLOCK BASELINE ARTIFACT- I, II, AVR, AVL, AVF, V6 ABNORMAL ECG COMPARED TO ECG 12/02/2022 00:53:32 NO SIGNIFICANT CHANGES Electronically Signed On 01-31-2023 14:00:47 CDT by Oh Chaudhary D.O.
[2023-01-31 11:51] LABS: Basophils Absolute Auto 0.1 K/mm3 (0.0-0.1); Basophils Percent Auto 0.9 % (0.2-1.2); Eosinophils Absolute Auto 0.3 K/mm3 (0-0.3); Eosinophils Percent Auto 4.1 % (0-4.4); Hematocrit 44.7 % (42.0-52.0); Hemoglobin 14.3 g/dL (14.0-18.0); Immature Granulocyte Absolute 0.03 K/mm3 (0.00-0.031); Immature Granulocyte Percent A 0.4 % (0-0.5); Lymphocytes Percent Auto 16.6 % (18.3-44.2); Mean Corpuscular Hemoglobin 29.4 pg (26-34); Mean Platelet Volume 10.1 fl (7.4-10.4); Monocytes Absolute Auto 0.7 K/mm3 (0.1-0.6); Monocytes Percent Auto 9.2 % (2.6-8.5); Neutrophils Absolute Auto 5.4 K/mm3 (1.3-6.7); Neutrophils Percent Auto 68.8 % (45.5-73.1); Platelet Count Result 187 k/mm3 (150-375); Red Blood Count 4.86 M/mm3 (4.6-6.20); Red Cell Distribution Width 13.7 % (11.5-14.5); White Blood Count 7.9 K/mm3 (4.5-10.0)
[2023-01-31 12:06] LABS: Alanine Aminotransferase 22 U/L (6-50); Albumin Level 4.1 g/dL (3.5-5.1); Alkaline Phosphatase 133 U/L (38-126); Anion Gap 5 mmol/L (8-16); Aspartate Amino Transferase 25 U/L (17-59); Bilirubin,Total 0.6 mg/dL (0.2-1.3); Blood Urea Nitrogen 21 mg/dL (9-20); Carbon Dioxide 30 mmol/L (22-30); Chloride 107 mmol/L (98-107); Estimated CRCL calculation 37 ml/min; Estimated Glomerular Filt Rate 48; Glucose 109 mg/dL (65-110); Sodium 142 mmol/L (137-145)
[2023-01-31 12:13] LABS: Prothrombin Time 13.1 Seconds (11.1-14.7)
[2023-01-31 12:14] LABS: NT Pro B Type Natriuretic Pept 140 pg/mL (19.9-100); Partial Thromboplastin Time 25.8 SECONDS (22.3-36.8); Troponin I < 0.012 ng/mL (0.000-0.034)
--- NOTE | 2023-01-31 12:15 | ED.EXTPRO ---
HPI - Extremity Problem General Chief complaint: Extremity Problem,Nontraumatic Stated complaint: feet swollen Time Seen by Provider: 01/31/23 12:07 History of Present Illness HPI Narrative: Patient is an 87-year-old male with a history of A-fib, CAD, hypertension, hyperlipidemia presenting with swollen feet. Patient states that both of his feet have been swelling more and more. States that this morning he was unable to fit his feet into his shoes. States that he was going to his grandsons graduation this weekend and he needs to be able to wear shoes. He denies chest pain, shortness of breath, lightheadedness, palpitations. He denies any redness or pain in his legs. States that they do feel tight. Denies further complaints. Related Data Home Medications Medication Instructions Recorded Confirmed amlodipine 5 mg tablet 5 mg PO DAILY 08/23/19 12/02/22 carbidopa 25 mg-levodopa 100 mg 1 tablet PO BID 08/23/19 02/02/21 tablet finasteride 5 mg tablet 5 mg PO DAILY 08/23/19 02/02/21 fluticasone propionate 50 2 spray intranasal DAILY 08/23/19 02/02/21 mcg/actuation nasal spray,suspension losartan 100 mg tablet 100 mg PO DAILY 08/23/19 12/02/22 metoprolol succinate 100 mg 50 mg PO DAILY 08/23/19 12/02/22 tablet,extended release 24 hr omeprazole 20 mg capsule,delayed 20 mg PO DAILY 08/23/19 12/02/22 release tamsulosin 0.4 mg capsule 0.4 mg PO HS 08/23/19 12/02/22 isosorbide mononitrate 60 mg 120 mg PO QAM 12/02/22 12/02/22 tablet,extended release 24 hr Allergies Allergy/AdvReac Type Severity Reaction Status Date / Time No Known Allergies Allergy Verified 01/31/23 11:31 Review of Systems Review of Systems: All systems reviewed & are unremarkable except as noted in HPI and below PMFSH Past Medical History Medical History (Updated 02/01/23 @ 00:00 by Background Daemon) Afib Anxiety BPH (benign prostatic hyperplasia) CAD (coronary artery disease) Chronic back pain Collar bone fracture Depression GERD (gastroesophageal reflux disease) HLD (hyperlipidemia) HTN (hypertension) Kidney stones Leg fracture, left dx3 Non Hodgkin's lymphoma Peripheral neuropathy Renal mass Bilateral renal masses Right arm fracture Stage III chronic kidney disease Surgical History Surgical History History of cardiac cath History of cholecystectomy History of cystoscopy Stented coronary artery Family History Family History Sibling Hypertension Sibling Hypertension Sibling Acute myocardial infarction Social History Social History Social History: Patient elects make himself a DNR. Innominate to son Chucho who is a [employer] professor in pharmacology to be the individual making medical decisions for him if he is unable. No pets at home. Smoking status: Never smoker Tobacco type: cigarettes Second hand tobacco smoke exposure: No Alcohol intake: former Alcohol use details: 2-3 per year Substance use: never Lack of Transportation: YES Lack of Food: Never True Current Housing: I Have Housing Concerned About Future Housing: No Difficulty Paying Gas/Electric Bills: No Difficulty Paying for Meds: No Currently Unemployed: No Education: Master's Degree or Higher Difficulty w/ Childcare or Family Care: No Living arrangements: alone Occupation/Education: retired Gender identity (if verbalized by the patient): Male Spiritual care concerns: No Exam Narrative: GENERAL: Well-appearing, well-nourished, and in no acute distress. HEAD: Normocephalic, atraumatic. EYES: PERRLA and EOMI. ENT: Nares clear, no rhinorrhea or epistaxis. Mucous membranes moist. NECK: Supple. CHEST: Clear to auscultation. No respiratory distress. HEART: Regular rate and rhythm. No murmur heard. Normal peripheral pulses. ABDOMEN: Soft,
[2023-01-31 12:40] VITALS: BP 176/102; PULSE 78; RESP 21; O2SAT 97
[2023-01-31 13:09] VITALS: BP 155/90; PULSE 73; RESP 20
[2023-01-31 14:48] VITALS: BP 160/84; PULSE 83; RESP 22; O2SAT 100
[2023-01-31 14:57] VITALS: BP 160/84; PULSE 86; RESP 16; O2SAT 98
== END 2023-01-31 15:01 | disposition home or self-care (01) ==
PROVIDERS: Emergency Medicine; Emergency Provider Emergency Medicine; PCP Emergency Medicine
DX: R60.0 Localized edema (principal); I48.91 Unspecified atrial fibrillation; I25.10 Atherosclerotic heart disease of native coronary artery without angina pectoris; I12.9 Hypertensive chronic kidney disease with stage 1 through stage 4 chronic kidney disease, or unspecified chronic kidney disease; N18.30 Chronic kidney disease, stage 3 unspecified; E78.5 Hyperlipidemia, unspecified; N40.0 Benign prostatic hyperplasia without lower urinary tract symptoms; K21.9 Gastro-esophageal reflux disease without esophagitis; Z85.72 Personal history of non-Hodgkin lymphomas; G62.9 Polyneuropathy, unspecified; Z87.442 Personal history of urinary calculi; Z95.5 Presence of coronary angioplasty implant and graft; Z90.49 Acquired absence of other specified parts of digestive tract; Z66 Do not resuscitate; R00.8 Other abnormalities of heart beat; I45.10 Unspecified right bundle-branch block
CPT/HCPCS: 36415; 71045; 80053; 83880; 84484; 85025; 85610; 85730; 93005; 99284

== ENCOUNTER 2023-12-28 01:42 | Emergency (ER) | payer MEDICARE, SELFPAY ==
--- NOTE | ~2023-12-28 | XR_ITS ---
EXAMINATION: XR chest 1V portable DATE: 12/28/2023 02:30 INDICATION: Chest pain. TECHNIQUE: A single frontal view of the chest was obtained. COMPARISON: None. FINDINGS: There is no pneumonia, pleural effusion, or pneumothorax. Calcified left hilar lymph nodes are consistent with old granulomatous disease. The heart size is normal. Surgical clips in the right upper quadrant are likely from cholecystectomy. IMPRESSION: 1. No acute cardiopulmonary disease. Reviewed, dictated and finalized at location A.
--- NOTE | 2023-12-28 01:44 | ECG_ITS ---
Measurements Intervals [place] Rate: 88 P: 50 RI: 174 QRS: 19 QRSD: 147 T: 7 QT: 366 QTc: 444 Interpretive Statements SINUS RHYTHM RIGHT BUNDLE BRANCH BLOCK [120+ ms QRS DURATION, UPRIGHT V1, 40+ ms S IN I/aVL/V4/V5/V6] ABNORMAL ECG COMPARED TO ECG 01/31/2023 11:29:27 NO SIGNIFICANT CHANGES Electronically Signed On 12-28-2023 7:47:28 CDT by Stephan Zaldivar M.D.
[2023-12-28 01:48] VITALS: BP 201/105; PULSE 89; RESP 22; TEMP 37.1; O2SAT 96
[2023-12-28] MEDS: ASPIRIN 81 MG CHEWABLE TABLET 324 MG PO (01:53)
[2023-12-28 02:00] LABS: Basophils Absolute Auto 0.1 K/mm3 (0.0-0.1); Basophils Percent Auto 0.9 % (0.2-1.2); Eosinophils Absolute Auto 0.3 K/mm3 (0-0.3); Eosinophils Percent Auto 5.2 % (0-4.4); Hematocrit 43.2 % (42.0-52.0); Immature Granulocyte Absolute 0.02 K/mm3 (0.00-0.031); Immature Granulocyte Percent A 0.3 % (0-0.5); Lymphocytes Absolute Auto 2.18 K/mm3 (0.9-3.2); Lymphocytes Percent Auto 37.5 % (18.3-44.2); Mean Corpuscular HGB Conc 32.4 g/dl (32-36); Mean Corpuscular Hemoglobin 29.3 pg (26-34); Mean Corpuscular Volume 90.4 fl (80-100); Mean Platelet Volume 9.9 fl (7.4-10.4); Monocytes Absolute Auto 0.7 K/mm3 (0.1-0.6); Monocytes Percent Auto 11.2 % (2.6-8.5); Neutrophils Absolute Auto 2.6 K/mm3 (1.3-6.7); Neutrophils Percent Auto 44.9 % (45.5-73.1); Platelet Count Result 185 k/mm3 (150-375); Red Blood Count 4.78 M/mm3 (4.6-6.20); Red Cell Distribution Width 14.1 % (11.5-14.5); White Blood Count 5.8 K/mm3 (4.5-10.0)
[2023-12-28 02:03] VITALS: O2SAT 96
[2023-12-28 02:10] LABS: INR 0.8; Prothrombin Time 11.9 Seconds (11.1-14.7)
[2023-12-28 02:11] LABS: Alanine Aminotransferase 17 U/L (6-50); Alkaline Phosphatase 129 U/L (38-126); Anion Gap 4 mmol/L (4-12); Aspartate Amino Transferase 25 U/L (17-59); Bilirubin,Total 0.5 mg/dL (0.2-1.3); Blood Urea Nitrogen 20 mg/dL (9-20); Calcium 9.5 mg/dL (8.4-10.2); Carbon Dioxide 28 mmol/L (22-30); Chloride 108 mmol/L (98-107); Estimated CRCL calculation 37 ml/min; Estimated Glomerular Filt Rate 52; Glucose 127 mg/dL (65-110); Lipase 84 U/L (23-300); Partial Thromboplastin Time 26.3 Seconds (22.3-36.8); Potassium 3.9 mmol/L (3.4-5.0); Sodium 140 mmol/L (137-145)
[2023-12-28 02:22] LABS: Troponin I < 0.012 ng/mL (0.000-0.034)
[2023-12-28 03:41] VITALS: BP 148/82; PULSE 65; RESP 15; O2SAT 96
--- NOTE | 2023-12-28 04:54 | ECG_ITS ---
Measurements Intervals [place] Rate: 64 P: 21 MS: 182 QRS: 15 QRSD: 141 T: 12 QT: 404 QTc: 418 Interpretive Statements SINUS RHYTHM RIGHT BUNDLE BRANCH BLOCK [120+ ms QRS DURATION, UPRIGHT V1, 40+ ms S IN I/aVL/V4/V5/V6] ABNORMAL ECG COMPARED TO ECG 12/28/2023 01:49:25 NO SIGNIFICANT CHANGES Electronically Signed On 12-28-2023 7:49:19 CDT by Stephan Zaldivar M.D.
[2023-12-28 05:13] LABS: Troponin I < 0.012 ng/mL (0.000-0.034)
--- NOTE | 2023-12-28 05:32 | ED.CHESTPAIN ---
HPI - Chest Pain General Chief Complaint: Chest Pain Stated Complaint: chest pain Time Seen by Provider: 12/28/23 02:27 History of Present Illness HPI narrative: Patient is an 88-year-old very pleasant male who presents to the emergency department this morning complaining of chest pain. Patient states that the chest pain started around midnight and lasted for a brief episode. Patient called EMS and EMS did administer a full dose oral chewable aspirin and sublingual nitroglycerin which patient states he is unsure if it helped with his chest pain or not but currently he is chest pain-free. Patient admits that he is going through a lot of stress as his kids are here to help him empty his house which he has lived in for over 50 years and it is causing him a lot of stress and making him sad getting rid of all of his stretcher to sell his home. Patient is currently denying any additional symptoms including nausea or vomiting, any shortness of breath, any abdominal pain, any urinary symptoms, denies any recent illness or any fevers or chills. Patient sees his mail clerk regularly and saw him a few you days ago and patient admits that this afternoon around 2:00 p.m. he has outpatient echocardiogram appointment. There are no other modifying, alleviating, or precipitating factors at this time. Related Data Home Medications Medication Instructions Recorded Confirmed carbidopa 25 mg-levodopa 100 mg 1 tablet PO BID 08/23/19 12/28/23 tablet finasteride 5 mg tablet 5 mg PO DAILY 08/23/19 12/28/23 fluticasone propionate 50 2 spray intranasal DAILY 08/23/19 12/28/23 mcg/actuation nasal spray,suspension losartan 100 mg tablet 100 mg PO DAILY 08/23/19 12/28/23 metoprolol succinate 100 mg 50 mg PO DAILY 08/23/19 12/28/23 tablet,extended release 24 hr omeprazole 20 mg capsule,delayed 20 mg PO DAILY 08/23/19 12/28/23 release tamsulosin 0.4 mg capsule 0.4 mg PO HS 08/23/19 12/02/22 isosorbide mononitrate 60 mg 120 mg PO QAM 12/02/22 12/28/23 tablet,extended release 24 hr vibegron 75 mg tablet (Gemtesa) 75 mg PO DAILY 04/05/24 04/05/24 Allergies Allergy/AdvReac Type Severity Reaction Status Date / Time No Known Allergies Allergy Verified 12/28/23 02:20 Review of Systems Review of Systems: All systems are reviewed and are negative unless stated otherwise in the HPI. [facility] Past Medical History Medical History Afib Anxiety BPH (benign prostatic hyperplasia) CAD (coronary artery disease) Chronic back pain Collar bone fracture Depression GERD (gastroesophageal reflux disease) HLD (hyperlipidemia) HTN (hypertension) Kidney stones Leg fracture, left dx3 Non Hodgkin's lymphoma Peripheral neuropathy Renal mass Bilateral renal masses Right arm fracture Stage III chronic kidney disease Surgical History Surgical History History of cardiac cath History of cholecystectomy History of cystoscopy Stented coronary artery Family History Family History Sibling Hypertension Sibling Hypertension Sibling Acute myocardial infarction Social History Social History Social History: Patient elects make himself a DNR. Innominate to son Chucho who is a [employer] professor in pharmacology to be the individual making medical decisions for him if he is unable. No pets at home. Smoking status: Never smoker Tobacco type: cigarettes Second hand tobacco smoke exposure: No Alcohol intake: former Alcohol use details: 2-3 per year Substance use: never Lack of Transportation: YES Lack of Food: Never True Current Housing: I Have Housing Concerned About Future Housing: No Difficulty Paying Gas/Electric Bills: No Difficulty Paying for Meds: No Currently Unemployed: No Education: Master's Degree
[2023-12-28 05:48] VITALS: BP 158/91; PULSE 66; RESP 15; O2SAT 96
== END 2023-12-28 05:50 | disposition home or self-care (01) ==
PROVIDERS: Emergency Provider Emergency Medicine; PCP Emergency Medicine
DX: R07.9 Chest pain, unspecified (principal); I48.91 Unspecified atrial fibrillation; I25.10 Atherosclerotic heart disease of native coronary artery without angina pectoris; K21.9 Gastro-esophageal reflux disease without esophagitis; E78.5 Hyperlipidemia, unspecified; Z85.72 Personal history of non-Hodgkin lymphomas; N18.30 Chronic kidney disease, stage 3 unspecified; I12.9 Hypertensive chronic kidney disease with stage 1 through stage 4 chronic kidney disease, or unspecified chronic kidney disease
CPT/HCPCS: 36415; 71045; 80053; 83690; 84484; 85025; 85610; 85730; 93005; 99284; A9270